=== PATIENT | male | born 1935 | race Caucasian/White ===

== ENCOUNTER 2017-09-26 07:56 | Observation (INO) | payer MEDICARE ==
[~2017-09-26] VITALS: Ht 177.8 cm; Wt 80.9 kg
[~2017-09-26 07:56] MED LIST: ATOR10TA PO; GABA100C PO; LACT1TAB13 PO; LEVO125T69 PO; LOSA25TA21 PO; OMEG500C3 PO; UBID1CAP54 PO; [UNRECOGNIZED DRUG - CODE] PO
[2017-09-26] MEDS ORDERED: normal saline 1000ML IV soln IVB ONE (08:15)
[2017-09-26 08:34] LABS: BASOPHILS % (AUTO) 0.2 % (0-1); EOSINOPHILS # (AUTO) 0.1 X10'3 (0-0.9); EOSINOPHILS % (AUTO) 1.2 % (0-6); HEMATOCRIT 30.1 % (42.0-52.0); HEMOGLOBIN 10.4 g/dl (14.0-17.9); LYMPHOCYTES # (AUTO) 1.5 X10'3 (1.1-4.8); LYMPHOCYTES % (AUTO) 12.6 % (21-51); MEAN CORPUSCULAR HEMOGLOBIN 29.1 PG (27.0-31.0); MEAN CORPUSCULAR HGB CONC 34.5 % (33.0-36.5); MEAN CORPUSCULAR VOLUME 84.5 FL (78-98); MONOCYTES # (AUTO) 0.5 X10'3 (0-0.9); MONOCYTES % (AUTO) 4.5 % (2-12); NEUTROPHILS # (AUTO) 9.4 X10'3 (1.8-7.7); NEUTROPHILS % (AUTO) 81.5 % (42-75); PLATELET COUNT 201 X10'3 (140-440); RED BLOOD COUNT 3.56 X10'6 (4.70-6.10); RED CELL DISTRIBUTION WIDTH 15.3 % (11.5-14.5); WHITE BLOOD COUNT 11.5 X10'3 (4.5-11.0)
[2017-09-26 08:42] LABS: PROTHROMBIN TIME 10.4 SECONDS (9.0-12.0)
[2017-09-26 09:01] LABS: ALANINE AMINOTRANSFERASE 18 U/L (12-78); ALBUMIN 2.9 G/DL (3.4-5.0); ALBUMIN/GLOBULIN RATIO 0.9 (1.1-1.5); ALKALINE PHOSPHATASE 64 IU/L (46-116); ANION GAP 10 (8-16); ASPARTATE AMINO TRANSFERASE 15 U/L (10-37); BILIRUBIN,TOTAL 0.3 MG/DL (0.1-1.0); BLOOD UREA NITROGEN 45 MG/DL (7-18); BUN/CREATININE RATIO 39.5 (5.4-32.0); CALCIUM 8.5 MG/DL (8.5-10.1); CHLORIDE 109 MMOL/L (99-107); CREATININE 1.14 MG/DL (0.60-1.10); GLUCOSE 140 MG/DL (70-104); LIPASE 66 U/L (73-393); POTASSIUM 5.2 MMOL/L (3.5-5.1); SODIUM 144 MMOL/L (135-145); TOTAL CARBON DIOXIDE 24.9 MMOL/L (24-32); eGFR 62 ML/MIN
[2017-09-26] MEDS ORDERED: LOSA25TA96 PO (10:02)
[2017-09-26] MEDS ORDERED: METO-539 PO (10:04)
[2017-09-26] MEDS ORDERED: sodium polystyrene sulfonate 15gm/60ml oral suspension PO ONE (10:15)
[2017-09-26] MEDS ORDERED: albuterol 2.5 MG/3 ML nebule NEB ONE (10:15)
[2017-09-26] MEDS ORDERED: normal saline 1000ml 1,000 ML IV ONE (12:50)
[2017-09-26] MEDS ORDERED: mag hydrox/Alum hydrox/simeth 30ml oral suspension PO PRN (13:15)
[2017-09-26] MEDS ORDERED: acetaminophen 325mg tablet PO PRN (13:15)
[2017-09-26] MEDS ORDERED: ondansetron/PF 4mg/2ml inj IV PRN (13:15)
[2017-09-26] MEDS ORDERED: magnesium hydroxide 30ml (MOM) UD suspension PO PRN (13:15)
[2017-09-26] MEDS: normal saline 1000ml 1,000 ML IV SCH ×2 (14:12→23:11)
[2017-09-26] MEDS ORDERED: pantoprazole 40 MG vial IV ONE (14:35)
[2017-09-26] MEDS ORDERED: PEG 3350/Na sulf,bicarb,Cl/KCl oral sol 4 liter bottle PO ONE (14:50)
[2017-09-26 15:00] LABS: CLARITY,URINE CLEAR (Clear); COLOR,URINE YELLOW (Yellow); GLUCOSE, URINE NEGATIVE (Neg); KETONES,URINE NEGATIVE (Neg); LEUKOCYTE ESTERASE ,URINE NEGATIVE (Neg); NITRITES, URINE NEGATIVE (Neg); OCCULT BLOOD,URINE NEGATIVE (Neg); PH,URINE 5.5 (4.8-8.0); PROTEIN,URINE NEGATIVE (Neg); UROBILINOGEN,URINE 0.2 E.U/dL (0.2-1.0)
[2017-09-26 15:06] LABS: UA COLLECTION TYPE CLN CATCH MIDSTREAM
[2017-09-26 15:26] LABS: HEMATOCRIT 27.3 % (42.0-52.0); HEMOGLOBIN 9.4 g/dl (14.0-17.9); MEAN CORPUSCULAR HEMOGLOBIN 29.5 PG (27.0-31.0); MEAN CORPUSCULAR HGB CONC 34.6 % (33.0-36.5); MEAN CORPUSCULAR VOLUME 85.5 FL (78-98); PLATELET COUNT 176 X10'3 (140-440); RED BLOOD COUNT 3.19 X10'6 (4.70-6.10); RED CELL DISTRIBUTION WIDTH 15.1 % (11.5-14.5); WHITE BLOOD COUNT 11.6 X10'3 (4.5-11.0)
[2017-09-26] MEDS ORDERED: heparin, porcine 5000 units/ml vial SQ SCH (20:00)
[2017-09-26] MEDS: pantoprazole 40MG/NS 100ML BAG 100 ML IV SCH ×2 (20:04→21:00)
[2017-09-26] MEDS ORDERED: CHONDROITIN PO SCH (21:00)
[2017-09-26] MEDS ORDERED: GLUCOSAMINE PO SCH (21:00)
[2017-09-26] MEDS ORDERED: CHOLECALCIFEROL PO SCH (21:00)
[2017-09-26 21:15] VITALS: BP 94/68
[2017-09-26] MEDS: gabapentin 100mg capsule PO SCH (21:16)
[2017-09-26] MEDS: lactobacillus rhamnosus 10,000 MMU CELLS/CAPSULE PO SCH (21:16)
[2017-09-26 21:27] LABS: HEMATOCRIT 27.5 % (42.0-52.0); HEMOGLOBIN 9.5 g/dl (14.0-17.9); MEAN CORPUSCULAR HEMOGLOBIN 29.2 PG (27.0-31.0); MEAN CORPUSCULAR HGB CONC 34.5 % (33.0-36.5); MEAN CORPUSCULAR VOLUME 84.8 FL (78-98); MEAN PLATELET VOLUME 8.6 FL (7.4-10.4); PLATELET COUNT 209 X10'3 (140-440); RED BLOOD COUNT 3.24 X10'6 (4.70-6.10); RED CELL DISTRIBUTION WIDTH 15.4 % (11.5-14.5)
[2017-09-27] VITALS (22 sets, daily range): BP systolic 99–155; BP diastolic 28–77
[2017-09-27] MEDS: pantoprazole 40MG/NS 100ML BAG 100 ML IV SCH ×6 (00:15→23:45)
[2017-09-27] MEDS ORDERED: HYDROcodone/acetaminophen 5mg/325mg tablet PO PRN (00:30)
[2017-09-27 03:38] LABS: BASOPHILS % (AUTO) 0.3 % (0-1); EOSINOPHILS % (AUTO) 0.1 % (0-6); HEMOGLOBIN 7.9 g/dl (14.0-17.9); LYMPHOCYTES # (AUTO) 2.1 X10'3 (1.1-4.8); MEAN CORPUSCULAR HEMOGLOBIN 29.3 PG (27.0-31.0); MEAN CORPUSCULAR HGB CONC 34.5 % (33.0-36.5); MEAN PLATELET VOLUME 8.8 FL (7.4-10.4); MONOCYTES # (AUTO) 0.8 X10'3 (0-0.9); MONOCYTES % (AUTO) 7.6 % (2-12); NEUTROPHILS # (AUTO) 7.2 X10'3 (1.8-7.7); PLATELET COUNT 167 X10'3 (140-440); RED BLOOD COUNT 2.71 X10'6 (4.70-6.10); RED CELL DISTRIBUTION WIDTH 15.1 % (11.5-14.5); WHITE BLOOD COUNT 10.2 X10'3 (4.5-11.0)
[2017-09-27 03:48] LABS: ALBUMIN 2.7 G/DL (3.4-5.0); ANION GAP 8 (8-16); BLOOD UREA NITROGEN 31 MG/DL (7-18); BUN/CREATININE RATIO 28.7 (5.4-32.0); CALCIUM 7.4 MG/DL (8.5-10.1); CHLORIDE 111 MMOL/L (99-107); CREATININE 1.08 MG/DL (0.60-1.10); GLUCOSE 106 MG/DL (70-104); POTASSIUM 3.8 MMOL/L (3.5-5.1); SODIUM 146 MMOL/L (135-145); TOTAL CARBON DIOXIDE 27.3 MMOL/L (24-32); eGFR 66 ML/MIN
[2017-09-27] MEDS: normal saline 1000ml 1,000 ML IV SCH ×2 (05:02→17:15)
[2017-09-27 05:55] LABS: HEMATOCRIT 22.3 % (42.0-52.0); HEMOGLOBIN 7.7 g/dl (14.0-17.9); MEAN CORPUSCULAR HGB CONC 34.4 % (33.0-36.5); MEAN CORPUSCULAR VOLUME 84.4 FL (78-98); MEAN PLATELET VOLUME 9.1 FL (7.4-10.4); PLATELET COUNT 157 X10'3 (140-440); RED BLOOD COUNT 2.64 X10'6 (4.70-6.10); RED CELL DISTRIBUTION WIDTH 15.3 % (11.5-14.5)
[2017-09-27] MEDS ORDERED: LACTOBACILLUS COMBO NO 6 PO SCH (07:30)
[2017-09-27] MEDS ORDERED: non-formulary drug (Ubidecarenone/Vit E Acetate (Co Q-10 100 Mg Softgel) 1 EACH) PO SCH (08:00)
[2017-09-27 09:20] LABS: HEMATOCRIT 24.2 % (42.0-52.0); HEMOGLOBIN 8.2 g/dl (14.0-17.9); MEAN CORPUSCULAR HEMOGLOBIN 29.1 PG (27.0-31.0); MEAN CORPUSCULAR HGB CONC 33.9 % (33.0-36.5); MEAN CORPUSCULAR VOLUME 85.8 FL (78-98); MEAN PLATELET VOLUME 9.1 FL (7.4-10.4); PLATELET COUNT 180 X10'3 (140-440); RED BLOOD COUNT 2.82 X10'6 (4.70-6.10); RED CELL DISTRIBUTION WIDTH 15.5 % (11.5-14.5); WHITE BLOOD COUNT 8.3 X10'3 (4.5-11.0)
[2017-09-27] MEDS: atorvastatin 10mg tablet PO SCH (09:36)
[2017-09-27] MEDS: lactobacillus rhamnosus 10,000 MMU CELLS/CAPSULE PO SCH ×2 (09:37→20:13)
[2017-09-27] MEDS: vitamin D (cholecalciferol) 1,000 unit tablet PO SCH (09:37)
[2017-09-27] MEDS: levoTHYROXINE 125mcg tablet PO SCH (09:37)
[2017-09-27] MEDS: gabapentin 100mg capsule PO SCH ×3 (09:37→20:13)
[2017-09-27] MEDS ORDERED: normal saline 1000ml 1,000 ML IV SCH ×2 (09:44→10:45)
[2017-09-27] MEDS ORDERED: simethicone 40mg/0.6ml oral drops 30ml MC ONE ×2 (09:45→10:45)
[2017-09-27] MEDS ORDERED: fentaNYL/PF 50MCG/1 ML 2ML syringe IV PRN ×2 (09:45→10:45)
[2017-09-27] MEDS ORDERED: MIDAZolam 5mg/5ml vial IV PRN ×2 (09:45→10:45)
[2017-09-27] MEDS ORDERED: MIDAZolam 5mg/ml 2ml vial ONE (10:28)
[2017-09-27] MEDS ORDERED: fentaNYL/PF 50MCG/1 ML 2ML syringe ONE (10:28)
[2017-09-27] MEDS ORDERED: LIDOcaine Viscous 15ml cup PO ONE (10:45)
[2017-09-27] MEDS ORDERED: LIDOcaine Viscous 15ml cup ONE (10:48)
[2017-09-27 17:18] LABS: HEMATOCRIT 23.5 % (42.0-52.0); HEMOGLOBIN 8.2 g/dl (14.0-17.9); MEAN CORPUSCULAR HGB CONC 34.9 % (33.0-36.5); MEAN CORPUSCULAR VOLUME 83.1 FL (78-98); MEAN PLATELET VOLUME 8.9 FL (7.4-10.4); PLATELET COUNT 161 X10'3 (140-440); RED BLOOD COUNT 2.83 X10'6 (4.70-6.10); RED CELL DISTRIBUTION WIDTH 15.9 % (11.5-14.5); WHITE BLOOD COUNT 7.6 X10'3 (4.5-11.0)
[2017-09-27 22:33] LABS: HEMATOCRIT 26.7 % (42.0-52.0); HEMOGLOBIN 9.2 g/dl (14.0-17.9); MEAN CORPUSCULAR HEMOGLOBIN 28.8 PG (27.0-31.0); MEAN CORPUSCULAR HGB CONC 34.5 % (33.0-36.5); MEAN CORPUSCULAR VOLUME 83.6 FL (78-98); MEAN PLATELET VOLUME 9.1 FL (7.4-10.4); PLATELET COUNT 148 X10'3 (140-440); RED BLOOD COUNT 3.19 X10'6 (4.70-6.10); RED CELL DISTRIBUTION WIDTH 16.8 % (11.5-14.5); WHITE BLOOD COUNT 7.4 X10'3 (4.5-11.0)
[2017-09-28] VITALS: BP 117/69
[2017-09-28 03:37] LABS: BASOPHILS % (AUTO) 0.3 % (0-1); EOSINOPHILS # (AUTO) 0.2 X10'3 (0-0.9); EOSINOPHILS % (AUTO) 3.8 % (0-6); HEMATOCRIT 26.3 % (42.0-52.0); HEMOGLOBIN 9.1 g/dl (14.0-17.9); LYMPHOCYTES # (AUTO) 1.8 X10'3 (1.1-4.8); LYMPHOCYTES % (AUTO) 28.9 % (21-51); MEAN CORPUSCULAR HEMOGLOBIN 28.9 PG (27.0-31.0); MEAN CORPUSCULAR HGB CONC 34.5 % (33.0-36.5); MEAN CORPUSCULAR VOLUME 83.8 FL (78-98); MEAN PLATELET VOLUME 8.6 FL (7.4-10.4); MONOCYTES # (AUTO) 0.6 X10'3 (0-0.9); MONOCYTES % (AUTO) 9.5 % (2-12); NEUTROPHILS # (AUTO) 3.5 X10'3 (1.8-7.7); NEUTROPHILS % (AUTO) 57.5 % (42-75); PLATELET COUNT 138 X10'3 (140-440); RED BLOOD COUNT 3.14 X10'6 (4.70-6.10); RED CELL DISTRIBUTION WIDTH 16.2 % (11.5-14.5); WHITE BLOOD COUNT 6.1 X10'3 (4.5-11.0)
[2017-09-28] MEDS: normal saline 1000ml 1,000 ML IV SCH (03:44)
[2017-09-28 03:46] LABS: ALBUMIN 2.4 G/DL (3.4-5.0); ANION GAP 8 (8-16); BLOOD UREA NITROGEN 11 MG/DL (7-18); BUN/CREATININE RATIO 13.8 (5.4-32.0); CALCIUM 6.9 MG/DL (8.5-10.1); CHLORIDE 114 MMOL/L (99-107); GLUCOSE 82 MG/DL (70-104); POTASSIUM 3.6 MMOL/L (3.5-5.1); SODIUM 147 MMOL/L (135-145); TOTAL CARBON DIOXIDE 24.6 MMOL/L (24-32); eGFR > 90 ML/MIN
[2017-09-28] MEDS: pantoprazole 40MG/NS 100ML BAG 100 ML IV SCH ×2 (05:06→10:19)
[2017-09-28 08:00] VITALS: BP 117/52
[2017-09-28] MEDS: lactobacillus rhamnosus 10,000 MMU CELLS/CAPSULE PO SCH (08:16)
[2017-09-28] MEDS: levoTHYROXINE 125mcg tablet PO SCH (08:17)
[2017-09-28] MEDS: atorvastatin 10mg tablet PO SCH (08:17)
[2017-09-28] MEDS: gabapentin 100mg capsule PO SCH ×2 (08:17→13:00)
[2017-09-28] MEDS: vitamin D (cholecalciferol) 1,000 unit tablet PO SCH (08:18)
[2017-09-28 09:26] LABS: HEMATOCRIT 28.7 % (42.0-52.0); HEMOGLOBIN 9.8 g/dl (14.0-17.9); MEAN CORPUSCULAR HEMOGLOBIN 28.8 PG (27.0-31.0); MEAN CORPUSCULAR HGB CONC 34.3 % (33.0-36.5); MEAN CORPUSCULAR VOLUME 84.1 FL (78-98); MEAN PLATELET VOLUME 8.5 FL (7.4-10.4); PLATELET COUNT 171 X10'3 (140-440); RED BLOOD COUNT 3.42 X10'6 (4.70-6.10); RED CELL DISTRIBUTION WIDTH 16.3 % (11.5-14.5); WHITE BLOOD COUNT 7.3 X10'3 (4.5-11.0)
[2017-09-28 11:10] VITALS: BP_SYST 113; BP_SYST 118; BP_SYST 126; BP_DIAS 46; BP_DIAS 56; BP_DIAS 57
[2017-09-28 11:56] VITALS: BP 137/63
== END 2017-09-28 15:19 | disposition home health service (06) ==
LOC: ER 07:56 → ED HOLD 13:11 → EDBEDREQ 20:28 → EDBEDREQTM 20:28 → SUR 3N 21:00
PROVIDERS: ADMIT Family Medicine; ATTEND Family Medicine
DX: K92.1 Melena (principal); K57.91 Diverticulosis of intestine, part unspecified, without perforation or abscess with bleeding; D64.9 Anemia, unspecified; K59.00 Constipation, unspecified; I95.9 Hypotension, unspecified; E86.0 Dehydration; N28.9 Disorder of kidney and ureter, unspecified; I10 Essential (primary) hypertension; E78.5 Hyperlipidemia, unspecified; E78.00 Pure hypercholesterolemia, unspecified; E03.9 Hypothyroidism, unspecified; D50.9 Iron deficiency anemia, unspecified; Z85.038 Personal history of other malignant neoplasm of large intestine; Z87.11 Personal history of peptic ulcer disease; Z95.0 Presence of cardiac pacemaker
CPT/HCPCS: 36415; 36430; 43235; 45378; 71046; 73552; 80048; 80053; 81003; 83690; 83735; 83880; 84484; 85025; 85027; 85610; 86885; 86900; 86901; 86920; 87070; 93005; 94760; 96365; 96366; 96375; 99285; C9113; G0378; J2250; J3010; J7030; P9016; A4620; G0500

== ENCOUNTER 2019-05-17 07:07 | Day surgery (SDC) | payer MEDICARE ==
[2019-05-11 12:30] LABS: BASOPHILS # (AUTO) 0.1 X10'3 (0-0.2); BASOPHILS % (AUTO) 0.9 % (0-1); EOSINOPHILS # (AUTO) 0.2 X10'3 (0-0.9); EOSINOPHILS % (AUTO) 2.2 % (0-6); LYMPHOCYTES # (AUTO) 2.2 X10'3 (1.1-4.8); LYMPHOCYTES % (AUTO) 23.8 % (21-51); MEAN CORPUSCULAR HEMOGLOBIN 28.3 PG (27.0-31.0); MEAN CORPUSCULAR HGB CONC 33.2 g/dL (33.0-36.5); MEAN CORPUSCULAR VOLUME 85.4 FL (78-98); MEAN PLATELET VOLUME 9.4 FL (7.4-10.4); MONOCYTES # (AUTO) 0.9 X10'3 (0-0.9); MONOCYTES % (AUTO) 9.6 % (2-12); NEUTROPHILS # (AUTO) 5.8 X10'3 (1.8-7.7); NEUTROPHILS % (AUTO) 63.5 % (42-75); PRE OP HEMOGLOBIN 13.9 g/dL (14.0-17.9); PRE OP PLATELET COUNT 212 X10'3 (140-440); RED BLOOD COUNT 4.92 X10'6 (4.70-6.10); RED CELL DISTRIBUTION WIDTH 15.7 % (11.5-14.5)
[2019-05-11 13:06] LABS: ALBUMIN 3.6 G/DL (3.4-5.0); ALBUMIN/GLOBULIN RATIO 0.9 (1.1-1.5); ALKALINE PHOSPHATASE 81 IU/L (46-116); BLOOD UREA NITROGEN 17 MG/DL (7-18); BUN/CREATININE RATIO 16.8 (5.4-32.0); CALCIUM 8.5 MG/DL (8.5-10.1); CHLORIDE 108 MMOL/L (99-107); CREATININE 1.01 MG/DL (0.60-1.10); PRE OP ALT 40 U/L (30-65); PRE OP ANION GAP 7 (8-16); PRE OP AST 22 U/L (10-37); PRE OP BILIRUB, TOTAL 0.3 MG/DL (0.0-1.0); PRE OP GLUCOSE 78 MG/DL (70-104); PRE OP POTASSIUM 4.8 MMOL/L (3.4-5.1); PRE OP SODIUM 143 MMOL/L (135-145); TOTAL CARBON DIOXIDE 27.8 MMOL/L (24-32); TOTAL PROTEIN 7.4 G/DL (6.4-8.2); eGFR 71 ML/MIN
[2019-05-17] VITALS (7 sets, daily range): BP systolic 134–145; BP diastolic 60–99
[~2019-05-17] VITALS: Ht 177.8 cm; Wt 82.6 kg
[~2019-05-17 07:07] MED LIST changes: +ASPI-1071 PO; +BUPIVAcaine/PF 2.5mg/ml (0.25%) 10ml vial ONE; -LACT1TAB13 PO; -LOSA25TA21 PO; +LOSA25TA96 PO; -UBID1CAP54 PO; +cefazolin/dext.iso 2gm/50ml 50 ML IV ONE; +famotidine 20mg tablet PO ONE; +ringers solution, lacted 1,000 ML IV SCH
[2019-05-17] MEDS ORDERED: LIDOcaine 0.5% (5mg/ml) 50ml vial ONE (07:18)
[2019-05-17] MEDS ORDERED: hydrALAZINE 20mg/ml inj. IV PRN (08:00)
[2019-05-17] MEDS ORDERED: ondansetron/PF 4mg/2ml inj IV PRN (08:00)
[2019-05-17] MEDS ORDERED: labetalol 20mg/4ml (5mg/ml) syringe IV PRN (08:00)
[2019-05-17] MEDS ORDERED: ringers solution, lacted 1,000 ML IV SCH (08:00)
[2019-05-17] MEDS ORDERED: fentaNYL/PF 50MCG/1 ML 2ML syringe IV PRN ×2 (08:00)
[2019-05-17] MEDS ORDERED: morphine 4 MG/ML inj SYRINge IV PRN ×2 (08:00)
[2019-05-17] MEDS ORDERED: propofol 10mg/ml 20ml vial IV ONE (09:03)
--- NOTE | 2019-05-17 09:38 | NUR ---
Received from OR via , accompanied by Anesthesiologist DR JACQUES and report given by Anesthesiolgist. AWAKENS TO VOICE, VITALS STABLE.
--- NOTE | 2019-05-17 10:28 | NUR ---
AWAKE AND ORIENTED. VITALS STABLE. DRESSING DI. SCOOBY PAIN HOME WITH A FRIEND AT THIS TIME.
== END 2019-05-17 10:28 | disposition home or self-care (01) ==
LOC: PAS 07:07
PROVIDERS: ATTEND Orthopaedic Surgery Hand Surgery
DX: G56.03 Carpal tunnel syndrome, bilateral upper limbs (principal); M18.0 Bilateral primary osteoarthritis of first carpometacarpal joints; I10 Essential (primary) hypertension; M19.90 Unspecified osteoarthritis, unspecified site; Z87.891 Personal history of nicotine dependence; Z95.0 Presence of cardiac pacemaker; Z88.1 Allergy status to other antibiotic agents; Z85.038 Personal history of other malignant neoplasm of large intestine; Z86.19 Personal history of other infectious and parasitic diseases; Z79.82 Long term (current) use of aspirin; Z79.899 Other long term (current) drug therapy; Z98.890 Other specified postprocedural states
CPT/HCPCS: 36415; 64721; 80053; 82948; 84443; 85025; 93005; J2001; J3490; A4215; A6222; A6449; J2704; J7120

== ENCOUNTER 2020-06-01 09:32 | Emergency (ER) | payer MEDICARE ==
[~2020-06-01] VITALS: Ht 177.8 cm; Wt 79.5 kg
[~2020-06-01 09:32] MED LIST changes: -BUPIVAcaine/PF 2.5mg/ml (0.25%) 10ml vial ONE; -cefazolin/dext.iso 2gm/50ml 50 ML IV ONE; -famotidine 20mg tablet PO ONE; -ringers solution, lacted 1,000 ML IV SCH
[2020-06-01 10:00] LABS: WHITE BLOOD COUNT 10.7 X10'3 (4.5-11.0)
[2020-06-01 10:02] LABS: BASOPHILS # (AUTO) 0.1 X10'3 (0-0.2); BASOPHILS % (AUTO) 0.9 % (0-1); EOSINOPHILS # (AUTO) 0.3 X10'3 (0-0.9); EOSINOPHILS % (AUTO) 2.4 % (0-6); HEMATOCRIT 46.5 % (42.0-52.0); HEMOGLOBIN 15.7 g/dl (14.0-17.9); LYMPHOCYTES % (AUTO) 27.7 % (21-51); MEAN CORPUSCULAR HGB CONC 33.8 g/dL (33.0-36.5); MEAN CORPUSCULAR VOLUME 85.5 FL (78-98); MEAN PLATELET VOLUME 8.3 FL (7.4-10.4); MONOCYTES # (AUTO) 1.1 X10'3 (0-0.9); MONOCYTES % (AUTO) 9.9 % (2-12); NEUTROPHILS # (AUTO) 6.3 X10'3 (1.8-7.7); NEUTROPHILS % (AUTO) 59.1 % (42-75); PLATELET COUNT 243 X10'3 (140-440); RED BLOOD COUNT 5.44 X10'6 (4.70-6.10); RED CELL DISTRIBUTION WIDTH 15.4 % (11.5-14.5)
[2020-06-01 10:14] LABS: ALANINE AMINOTRANSFERASE 24 U/L (12-78); ALBUMIN 3.8 G/DL (3.4-5.0); ALKALINE PHOSPHATASE 97 IU/L (46-116); ANION GAP 6 (8-16); ASPARTATE AMINO TRANSFERASE 20 U/L (10-37); BILIRUBIN,TOTAL 0.4 MG/DL (0.1-1.0); BLOOD UREA NITROGEN 14 MG/DL (7-18); BUN/CREATININE RATIO 11.5 (5.4-32.0); CALCIUM 8.9 MG/DL (8.5-10.1); CHLORIDE 106 MMOL/L (99-107); CREATININE 1.22 MG/DL (0.60-1.10); GLUCOSE 72 MG/DL (70-104); POTASSIUM 4.7 MMOL/L (3.5-5.1); SODIUM 140 MMOL/L (135-145); TOTAL CARBON DIOXIDE 28.2 MMOL/L (24-32); TOTAL PROTEIN 7.8 G/DL (6.4-8.2); eGFR 57 ML/MIN
[2020-06-01] MEDS ORDERED: magnesium 2GM in 50ml NS 50 ML IV ONE (10:35)
[2020-06-01] MEDS ORDERED: normal saline 1000ML IV soln IVB ONE (10:35)
[2020-06-01] MEDS ORDERED: amiodarone 150mg/dext, iso-os 100 ML IV ONE (12:20)
[2020-06-01] MEDS ORDERED: amiodarone 200mg tablet PO ONE (13:20)
[2020-06-01] MEDS ORDERED: AMIO200T61 PO (13:45)
[2020-06-01 14:03] VITALS: BP 117/56
== END 2020-06-01 14:06 | disposition home or self-care (01) ==
LOC: ER 09:33
DX: I47.2 Ventricular tachycardia (principal); E78.00 Pure hypercholesterolemia, unspecified; Z87.11 Personal history of peptic ulcer disease; Z85.038 Personal history of other malignant neoplasm of large intestine; Z98.890 Other specified postprocedural states; Z95.0 Presence of cardiac pacemaker; Z79.82 Long term (current) use of aspirin; Z79.899 Other long term (current) drug therapy; Z88.1 Allergy status to other antibiotic agents; Z88.6 Allergy status to analgesic agent
CPT/HCPCS: 36415; 71045; 80053; 83880; 84443; 84484; 85025; 93005; 96365; 96366; 99285; J3475; J7030

== ENCOUNTER 2020-06-19 09:18 | Emergency (ER) | payer MEDICARE ==
[~2020-06-19] VITALS: Ht 177.8 cm; Wt 79.5 kg
[~2020-06-19 09:18] MED LIST changes: +AMIO200T61 PO
[2020-06-19 10:16] LABS: BASOPHILS # (AUTO) 0.1 X10'3 (0-0.2); BASOPHILS % (AUTO) 0.6 % (0-1); EOSINOPHILS # (AUTO) 0.1 X10'3 (0-0.9); EOSINOPHILS % (AUTO) 0.9 % (0-6); HEMOGLOBIN 13.7 g/dl (14.0-17.9); LYMPHOCYTES # (AUTO) 1.3 X10'3 (1.1-4.8); LYMPHOCYTES % (AUTO) 10.3 % (21-51); MEAN CORPUSCULAR HEMOGLOBIN 28.5 PG (27.0-31.0); MEAN CORPUSCULAR HGB CONC 33.4 g/dL (33.0-36.5); MEAN CORPUSCULAR VOLUME 85.4 FL (78-98); MEAN PLATELET VOLUME 8.7 FL (7.4-10.4); MONOCYTES # (AUTO) 1.3 X10'3 (0-0.9); MONOCYTES % (AUTO) 10.4 % (2-12); NEUTROPHILS # (AUTO) 9.9 X10'3 (1.8-7.7); NEUTROPHILS % (AUTO) 77.8 % (42-75); PLATELET COUNT 238 X10'3 (140-440); RED BLOOD COUNT 4.81 X10'6 (4.70-6.10); RED CELL DISTRIBUTION WIDTH 15.5 % (11.5-14.5); WHITE BLOOD COUNT 12.7 X10'3 (4.5-11.0)
[2020-06-19 10:30] LABS: ALANINE AMINOTRANSFERASE 29 U/L (12-78); ALBUMIN 3.5 G/DL (3.4-5.0); ALBUMIN/GLOBULIN RATIO 0.9 (1.1-1.5); ALKALINE PHOSPHATASE 84 IU/L (46-116); ANION GAP 8 (8-16); ASPARTATE AMINO TRANSFERASE 21 U/L (10-37); BILIRUBIN,TOTAL 0.5 MG/DL (0.1-1.0); BLOOD UREA NITROGEN 16 MG/DL (7-18); BUN/CREATININE RATIO 12.6 (5.4-32.0); CALCIUM 9.3 MG/DL (8.5-10.1); CHLORIDE 106 MMOL/L (99-107); CREATININE 1.27 MG/DL (0.60-1.10); GLUCOSE 60 MG/DL (70-104); POTASSIUM 5.1 MMOL/L (3.5-5.1); SODIUM 141 MMOL/L (135-145); TOTAL CARBON DIOXIDE 27.4 MMOL/L (24-32); TOTAL PROTEIN 7.3 G/DL (6.4-8.2); eGFR 54 ML/MIN
--- NOTE | 2020-06-19 10:34 | NUR ---
TC TO DR. SPENCER'S OFFICE TO FIND OUT WHAT TYPE OF PACEMAKER PATIENT HAS. THERE ARE NO RECORDS AT THE OFFICE, PER STAFF.
[2020-06-19 11:41] VITALS: BP 139/61
--- NOTE | 2020-06-19 11:46 | NUR ---
the [employer] system says it is failing to send the information to get a report. have tried multiple times. BERNARD aware. Talon is calling them to let them know and have a person come out here to interogate the pacemaker. Addendum: 06/19/20 at 1226 by RWILCOX it is [employer] acording to the pt's card. not [employer]
== END 2020-06-19 12:40 | disposition home or self-care (01) ==
LOC: ER 09:19
DX: R53.1 Weakness (principal); E78.00 Pure hypercholesterolemia, unspecified; Z88.1 Allergy status to other antibiotic agents; Z88.2 Allergy status to sulfonamides; Z79.899 Other long term (current) drug therapy
CPT/HCPCS: 36415; 71045; 80053; 83880; 84484; 85025; 93005; 99285

== ENCOUNTER 2022-03-20 11:26 | Inpatient (IN) | payer MEDICARE ==
[~2022-03-20] VITALS: Ht 177.8 cm; Wt 77.3 kg
[~2022-03-20 11:26] MED LIST changes: -AMIO200T61 PO
[2022-03-20 12:03] LABS: BASOPHILS # (AUTO) 0.1 X10'3 (0-0.2); BASOPHILS % (AUTO) 0.5 % (0-1); EOSINOPHILS % (AUTO) 0.2 % (0-6); HEMATOCRIT 39.4 % (42.0-52.0); LYMPHOCYTES # (AUTO) 1.2 X10'3 (1.1-4.8); LYMPHOCYTES % (AUTO) 11.9 % (21-51); MEAN CORPUSCULAR HEMOGLOBIN 27.4 PG (27.0-31.0); MEAN CORPUSCULAR VOLUME 82.8 FL (78-98); MONOCYTES # (AUTO) 1.1 X10'3 (0-0.9); MONOCYTES % (AUTO) 10.8 % (2-12); NEUTROPHILS # (AUTO) 7.8 X10'3 (1.8-7.7); NEUTROPHILS % (AUTO) 76.6 % (42-75); PLATELET COUNT 182 X10'3 (140-440); RED BLOOD COUNT 4.75 X10'6 (4.70-6.10); RED CELL DISTRIBUTION WIDTH 16.3 % (11.5-14.5); WHITE BLOOD COUNT 10.1 X10'3 (4.5-11.0)
[2022-03-20] MEDS ORDERED: LISI40TA13 PO (12:14)
[2022-03-20] MEDS ORDERED: METO-384 PO (12:14)
[2022-03-20 12:25] LABS: ALANINE AMINOTRANSFERASE 22 U/L (12-78); ALBUMIN 3.5 G/DL (3.4-5.0); ALBUMIN/GLOBULIN RATIO 0.9 (1.1-1.5); ALKALINE PHOSPHATASE 66 IU/L (46-116); ANION GAP 12 (8-16); ASPARTATE AMINO TRANSFERASE 24 U/L (10-37); BILIRUBIN,TOTAL 0.5 MG/DL (0.1-1.0); BLOOD UREA NITROGEN 17 MG/DL (7-18); BUN/CREATININE RATIO 12.2 (5.4-32.0); CHLORIDE 103 MMOL/L (99-107); CREATININE 1.39 MG/DL (0.60-1.10); GLUCOSE 123 MG/DL (70-104); POTASSIUM 3.8 MMOL/L (3.5-5.1); SODIUM 137 MMOL/L (135-145); TOTAL CARBON DIOXIDE 22.4 MMOL/L (24-32); TOTAL PROTEIN 7.2 G/DL (6.4-8.2); eGFR 49 ML/MIN
[2022-03-20] MEDS ORDERED: dexamethasone sod phosphate 10mg/ml inj IV STA (12:44)
[2022-03-20] MEDS ORDERED: BEBTELOVIMAB 175 MG/2 ML VIAL IV ONE (12:45)
[2022-03-20] MEDS ORDERED: albuterol 2.5 MG/3 ML nebule NEB ONE (14:45)
[2022-03-20] MEDS ORDERED: acetaminophen 325mg tablet PO PRN ×2 (15:25)
[2022-03-20] MEDS ORDERED: ondansetron/PF 4mg/2ml inj IV PRN (15:25)
[2022-03-20] MEDS ORDERED: magnesium Cl slow-release 64mg tablet PO PRN (15:25)
[2022-03-20] MEDS ORDERED: HYDROcodone/acetaminophen 5mg/325mg tablet PO PRN (15:25)
[2022-03-20] MEDS ORDERED: POTASSIUM BICARB 20meq eff tab 20 MEQ TABLET.EFF PO PRN ×2 (15:25)
[2022-03-20] MEDS ORDERED: potassium CL 10mEq/100ml bag 100 ML IV PRN (15:25)
[2022-03-20] MEDS ORDERED: normal saline 1000ml 1,000 ML IV SCH (15:25)
[2022-03-20] MEDS ORDERED: guaiFENesin/DM/phenylephrine syrup 120ml bottle PO PRN (15:25)
[2022-03-20] MEDS ORDERED: magnesium 4gm in 100ml NS 100 ML IV PRN (15:25)
[2022-03-20] MEDS ORDERED: magnesium 2GM in 50ml NS 50 ML IV PRN (15:25)
[2022-03-20] MEDS ORDERED: morphine 2 MG/ML inj. syringe IV PRN (15:25)
[2022-03-20] MEDS ORDERED: dexamethasone 4mg/ml inj IV SCH (16:00)
--- NOTE | 2022-03-20 16:45 | NUR ---
Pt attempted to void in and urinal and splilled. Cleaned pt. Now, he has a temp of 102.1(o). Increasing moisture with coughing. Difficulty producing sputum.
[2022-03-20] MEDS ORDERED: ALBUTEROL INHALER 1 PUFF/90 MCG INHALation IH PRN (17:30)
[2022-03-20] MEDS ORDERED: CefTRIAXone 2gm/D5W 50ml BAG 50 ML IV SCH (17:30)
[2022-03-20] MEDS ORDERED: budesonide 0.5mg/2ml UD nebule IH SCH (20:00)
[2022-03-20] MEDS ORDERED: K and/or MAG REPLACEMENT MC SCH (20:00)
[2022-03-20] MEDS ORDERED: BUDESONIDE 180 MCG AER.POW.BA INH SCH (20:00)
[2022-03-20] MEDS: benzonatate 100mg capsule PO SCH (20:07)
[2022-03-20] MEDS: heparin, porcine 5000 units/ml vial SQ SCH (20:07)
[2022-03-20] MEDS: dexamethasone 4mg/ml inj IV SCH (20:07)
[2022-03-20] MEDS ORDERED: temazepam 15mg capsule PO PRN (21:00)
[2022-03-20] MEDS ORDERED: metoprolol succinate 25mg (24-HOUR) SR. Tablet PO SCH (21:02)
--- NOTE | 2022-03-20 21:28 | NUR ---
paged rt. for prn breathing tx.
--- NOTE | 2022-03-20 21:34 | NUR ---
respiratory advised for pt. too keep using yankeur to remove phlegm.
--- NOTE | 2022-03-20 23:21 | NUR ---
pt. alert and oriented when I entered the room. Pt. was adjusting himself in bed. stated he had no needs at this time.
[2022-03-21 03:38] LABS: BASOPHILS % (AUTO) 0.1 % (0-1); EOSINOPHILS % (AUTO) 0 % (0-6); HEMATOCRIT 36.5 % (42.0-52.0); HEMOGLOBIN 12.1 g/dl (14.0-17.9); LYMPHOCYTES # (AUTO) 0.8 X10'3 (1.1-4.8); LYMPHOCYTES % (AUTO) 10.4 % (21-51); MEAN CORPUSCULAR HEMOGLOBIN 27.5 PG (27.0-31.0); MEAN CORPUSCULAR HGB CONC 33.3 g/dL (33.0-36.5); MEAN CORPUSCULAR VOLUME 82.6 FL (78-98); MEAN PLATELET VOLUME 8.1 FL (7.4-10.4); MONOCYTES # (AUTO) 0.6 X10'3 (0-0.9); NEUTROPHILS # (AUTO) 6.7 X10'3 (1.8-7.7); NEUTROPHILS % (AUTO) 82.5 % (42-75); PLATELET COUNT 151 X10'3 (140-440); RED BLOOD COUNT 4.41 X10'6 (4.70-6.10); RED CELL DISTRIBUTION WIDTH 15.9 % (11.5-14.5); WHITE BLOOD COUNT 8.1 X10'3 (4.5-11.0)
[2022-03-21 03:57] LABS: ALANINE AMINOTRANSFERASE 18 U/L (12-78); ALBUMIN 2.8 G/DL (3.4-5.0); ALBUMIN/GLOBULIN RATIO 0.9 (1.1-1.5); ALKALINE PHOSPHATASE 52 IU/L (46-116); ANION GAP 8 (8-16); ASPARTATE AMINO TRANSFERASE 21 U/L (10-37); BILIRUBIN,TOTAL 0.3 MG/DL (0.1-1.0); BLOOD UREA NITROGEN 19 MG/DL (7-18); BUN/CREATININE RATIO 17.9 (5.4-32.0); CALCIUM 7.6 MG/DL (8.5-10.1); CHLORIDE 109 MMOL/L (99-107); CREATININE 1.06 MG/DL (0.60-1.10); GLUCOSE 158 MG/DL (70-104); POTASSIUM 4.1 MMOL/L (3.5-5.1); SODIUM 143 MMOL/L (135-145); TOTAL CARBON DIOXIDE 26.3 MMOL/L (24-32); eGFR 67 ML/MIN
[2022-03-21] MEDS: dexamethasone 4mg/ml inj IV SCH (05:10)
--- NOTE | 2022-03-21 06:31 | NUR ---
Assumed patient care at this time
[2022-03-21 08:00] VITALS: BP 125/58
[2022-03-21] MEDS: heparin, porcine 5000 units/ml vial SQ SCH (08:00)
[2022-03-21] MEDS ORDERED: atorvastatin 10mg tablet PO SCH (08:00)
[2022-03-21] MEDS ORDERED: losartan 50mg tablet PO SCH (08:00)
[2022-03-21] MEDS ORDERED: levoTHYROXINE 125mcg tablet PO SCH (08:00)
--- NOTE | 2022-03-21 08:20 | NUR ---
Dr. Julio pagesanti. Patient states he wants to leave AMA.
[2022-03-21] MEDS: benzonatate 100mg capsule PO SCH (08:34)
--- NOTE | 2022-03-21 08:35 | NUR ---
Dr. Julio stated she will call back.
[2022-03-21] MEDS ORDERED: BENZ-69 PO (09:35)
[2022-03-21] MEDS ORDERED: LOSA50TA64 PO (09:35)
[2022-03-21] MEDS ORDERED: PRED10TA23 PO (09:35)
[2022-03-21] MEDS ORDERED: ALBU6.7H9 IH (09:35)
[2022-03-21] MEDS ORDERED: LEVO-65 PO (09:35)
[2022-03-21] MEDS ORDERED: GUAI-727 PO (09:35)
--- NOTE | 2022-03-21 10:15 | NUR ---
Patient given discharge instructions by dr. Julio. Patient taken to lobby by wheelchair.
--- NOTE | 2022-03-25 14:25 | NUR ---
Case Management DC follow up:Spoke with Patient via telephone. S/P : Patient Reports: Denies: Acute/continuous C/P, emergent SOB, resp distress, dyspnea; however, verbalizes having occasional moist cough.Denies: N/V, weakness, vertigo, syncope episodes, orthostatic hypotension, RICHTER,blurry vision, s/s of stroke/BE-FAST, dysuria, hematuria, retention, abdominal pain/distention, hematochezia, melena, unexplained bruising, bleeding, fever,chills . Verbalizes only two of his new prescriptions were available at the pharmacy; pharmacy had not received the complete order from hospital. I phoned [facility] pharmacists whom confirmed that they receive only two orders ;Levofloxacin, and prednisone. the discharge Physician is not available;therefore, contacted Patient's PCP Dr.K. Vee. Received telephone orders for the discharge medications, and called them into [facility].Telephoned Patient and apprised him his medications have been called in.Patient verbalizes he dose not want anymore medications ,and doesn't need new medications. Reminded Patient to call Dr. Vee's office and schedule follow up appointment for after his isolation is completed.Patient verbalizes while in the hospital the nurses did not give him water or food and/or empty his urinal ;just gave him medications.No further questions/concerns regarding recent hospital stay and/or DC status at this time.
== END 2022-03-21 10:00 | disposition home or self-care (01) | DRG 177 ==
LOC: ER 11:26 → ED HOLD 15:30
PROVIDERS: ADMIT Internal Medicine; ATTEND Internal Medicine
DX: U07.1 COVID-19 (principal); J12.82 Pneumonia due to coronavirus disease 2019; J96.01 Acute respiratory failure with hypoxia; J44.0 Chronic obstructive pulmonary disease with (acute) lower respiratory infection; J44.1 Chronic obstructive pulmonary disease with (acute) exacerbation; Z60.2 Problems related to living alone; E78.00 Pure hypercholesterolemia, unspecified; F03.90 Unspecified dementia, unspecified severity, without behavioral disturbance, psychotic disturbance, mood disturbance, and anxiety; E03.9 Hypothyroidism, unspecified; I25.10 Atherosclerotic heart disease of native coronary artery without angina pectoris; I50.9 Heart failure, unspecified; Z78.9 Other specified health status; Z85.038 Personal history of other malignant neoplasm of large intestine; Z87.11 Personal history of peptic ulcer disease; Z95.0 Presence of cardiac pacemaker; Z87.891 Personal history of nicotine dependence; Z86.12 Personal history of poliomyelitis; Z88.8 Allergy status to other drugs, medicaments and biological substances; Z90.49 Acquired absence of other specified parts of digestive tract
CPT/HCPCS: 36415; 71045; 80053; 83605; 83880; 85025; 87040; 87635; 94760; 99285; A4615; A4624; C9803; G0378; J0696; J1100; J1644; J7030

== ENCOUNTER 2022-03-23 09:27 | Emergency (ER) | payer MEDICARE ==
[~2022-03-23] VITALS: Ht 177.8 cm; Wt 77.3 kg
[~2022-03-23 09:27] MED LIST changes: +ALBU6.7H9 IH; +BENZ-69 PO; +GUAI-727 PO; +LEVO-65 PO; -LOSA25TA96 PO; +LOSA50TA64 PO; +METO-384 PO; +PRED10TA23 PO
[2022-03-23] MEDS ORDERED: normal saline 1000ML IV soln IVB ONE ×2 (10:30→13:45)
[2022-03-23] MEDS ORDERED: iohexol 350MG/ML 100ml bottle IV ONE (11:01)
[2022-03-23 11:44] LABS: BASOPHILS % (AUTO) 0 % (0-1); EOSINOPHILS % (AUTO) 0.1 % (0-6); HEMATOCRIT 37.7 % (42.0-52.0); HEMOGLOBIN 12.4 g/dl (14.0-17.9); LYMPHOCYTES # (AUTO) 0.6 X10'3 (1.1-4.8); LYMPHOCYTES % (AUTO) 7.5 % (21-51); MEAN CORPUSCULAR VOLUME 81.9 FL (78-98); MEAN PLATELET VOLUME 7.9 FL (7.4-10.4); MONOCYTES # (AUTO) 0.7 X10'3 (0-0.9); MONOCYTES % (AUTO) 7.7 % (2-12); NEUTROPHILS # (AUTO) 7.4 X10'3 (1.8-7.7); NEUTROPHILS % (AUTO) 84.7 % (42-75); PLATELET COUNT 220 X10'3 (140-440); RED CELL DISTRIBUTION WIDTH 16.2 % (11.5-14.5); WHITE BLOOD COUNT 8.7 X10'3 (4.5-11.0)
[2022-03-23 11:56] LABS: ALANINE AMINOTRANSFERASE 43 U/L (12-78); ALBUMIN 2.9 G/DL (3.4-5.0); ALBUMIN/GLOBULIN RATIO 0.8 (1.1-1.5); ALKALINE PHOSPHATASE 55 IU/L (46-116); ANION GAP 6 (8-16); ASPARTATE AMINO TRANSFERASE 39 U/L (10-37); BILIRUBIN,TOTAL 0.4 MG/DL (0.1-1.0); BLOOD UREA NITROGEN 27 MG/DL (7-18); BUN/CREATININE RATIO 21.3 (5.4-32.0); CALCIUM 8.3 MG/DL (8.5-10.1); CHLORIDE 104 MMOL/L (99-107); CREATININE 1.27 MG/DL (0.60-1.10); GLUCOSE 88 MG/DL (70-104); POTASSIUM 4.6 MMOL/L (3.5-5.1); SODIUM 136 MMOL/L (135-145); TOTAL CARBON DIOXIDE 25.9 MMOL/L (24-32); TOTAL PROTEIN 6.5 G/DL (6.4-8.2); eGFR 54 ML/MIN
[2022-03-23 12:04] LABS: C-REACTIVE PROTEIN 4.43 MG/DL (0.0-0.5); LIPASE < 50 U/L (73-393); MAGNESIUM 2.3 MG/DL (1.5-2.4); PHOSPHORUS 3.3 MG/DL (2.3-4.5)
[2022-03-23 12:20] LABS: CLARITY,URINE CLEAR (Clear); COLOR,URINE YELLOW (Yellow); GLUCOSE, URINE NEGATIVE (Neg); KETONES,URINE NEGATIVE (Neg); LEUKOCYTE ESTERASE ,URINE NEGATIVE (Neg); NITRITES, URINE NEGATIVE (Neg); OCCULT BLOOD,URINE NEGATIVE (Neg); PH,URINE 6.5 (4.8-8.0); PROTEIN,URINE NEGATIVE (Neg); UROBILINOGEN,URINE 0.2 E.U/dL (0.2-1.0)
[2022-03-23 12:28] LABS: UA COLLECTION TYPE NON-SPECIFIED
[2022-03-23] MEDS ORDERED: acetaminophen 325mg tablet PO ONE (14:45)
[2022-03-23 15:02] VITALS: BP 147/87
== END 2022-03-23 16:17 | disposition home or self-care (01) ==
LOC: ER 09:28
DX: U07.1 COVID-19 (principal); E86.0 Dehydration; I50.9 Heart failure, unspecified; E03.9 Hypothyroidism, unspecified; Z88.1 Allergy status to other antibiotic agents; Z88.8 Allergy status to other drugs, medicaments and biological substances; Z91.041 Radiographic dye allergy status; Z98.890 Other specified postprocedural states
CPT/HCPCS: 36415; 71045; 71275; 80053; 81003; 83605; 83690; 83735; 83880; 84100; 84145; 84484; 85025; 85610; 85651; 86140; 87040; 93005; 96360; 96361; 99285; J3490; J7030; Q9967

== ENCOUNTER 2023-05-03 07:36 | Emergency (ER) | payer MEDICARE ==
[~2023-05-03] VITALS: Ht 177.8 cm; Wt 91.0 kg
[~2023-05-03 07:36] MED LIST changes: +ALBU6.7H14 IH; -ALBU6.7H9 IH; -BENZ-69 PO; -LEVO-65 PO; -PRED10TA23 PO; +[UNRECOGNIZED DRUG - CODE] PO
[2023-05-03 07:40] VITALS: TEMP 98.1
[2023-05-03 09:00] LABS: BASOPHILS # (AUTO) 0.1 X10'3 (0-0.2); BASOPHILS % (AUTO) 0.9 % (0-1); EOSINOPHILS # (AUTO) 0.3 X10'3 (0-0.9); EOSINOPHILS % (AUTO) 2.3 % (0-6); HEMATOCRIT 36.3 % (42.0-52.0); HEMOGLOBIN 11.8 g/dl (14.0-17.9); LYMPHOCYTES # (AUTO) 1.5 X10'3 (1.1-4.8); LYMPHOCYTES % (AUTO) 12.9 % (21-51); MEAN CORPUSCULAR HEMOGLOBIN 27.3 PG (27.0-31.0); MEAN CORPUSCULAR HGB CONC 32.4 g/dL (33.0-36.5); MEAN CORPUSCULAR VOLUME 84.1 FL (78-98); MEAN PLATELET VOLUME 8.3 FL (7.4-10.4); MONOCYTES # (AUTO) 1.3 X10'3 (0-0.9); MONOCYTES % (AUTO) 11.3 % (2-12); NEUTROPHILS # (AUTO) 8.2 X10'3 (1.8-7.7); NEUTROPHILS % (AUTO) 72.6 % (42-75); PLATELET COUNT 174 X10'3 (140-440); RED BLOOD COUNT 4.32 X10'6 (4.70-6.10); RED CELL DISTRIBUTION WIDTH 16.1 % (11.5-14.5); WHITE BLOOD COUNT 11.3 X10'3 (4.5-11.0)
[2023-05-03 09:07] LABS: BILIRUBIN,URINE NEGATIVE (Neg); CLARITY,URINE CLEAR (Clear); COLOR,URINE YELLOW (Yellow); GLUCOSE, URINE NEGATIVE (Neg); KETONES,URINE NEGATIVE (Neg); LEUKOCYTE ESTERASE ,URINE NEGATIVE (Neg); NITRITES, URINE NEGATIVE (Neg); OCCULT BLOOD,URINE NEGATIVE (Neg); PROTEIN,URINE NEGATIVE (Neg); UROBILINOGEN,URINE 0.2 E.U/dL (0.2-1.0)
[2023-05-03 09:08] LABS: UA COLLECTION TYPE NON-SPECIFIED
[2023-05-03 09:14] LABS: ALANINE AMINOTRANSFERASE 22 U/L (12-78); ALBUMIN 3.1 G/DL (3.4-5.0); ALBUMIN/GLOBULIN RATIO 0.9 (1.1-1.5); ALKALINE PHOSPHATASE 67 IU/L (46-116); ANION GAP 5 (8-16); ASPARTATE AMINO TRANSFERASE 17 U/L (10-37); BILIRUBIN,TOTAL 0.6 MG/DL (0.1-1.0); BLOOD UREA NITROGEN 36 MG/DL (7-18); BUN/CREATININE RATIO 24.2 (10.0-20.0); CALCIUM 8.1 MG/DL (8.5-10.1); CHLORIDE 108 MMOL/L (99-107); CREATININE 1.49 MG/DL (0.60-1.10); GLUCOSE 104 MG/DL (70-104); POTASSIUM 5.3 MMOL/L (3.5-5.1); SODIUM 137 MMOL/L (135-145); TOTAL CARBON DIOXIDE 24.2 MMOL/L (24-32); TOTAL PROTEIN 6.5 G/DL (6.4-8.2); eCRCL 37 ML/MIN; eGFR 45 ML/MIN
[2023-05-03 09:21] LABS: PRO BRAIN NATRIURETIC PEPTIDE 490 PG/ML (0-450)
--- NOTE | 2023-05-03 09:31 | NUR ---
Removed from [facility] per Dr. Diallo
[2023-05-03 14:00] VITALS: BP 116/77; PULSE 61; RESP 16; O2SAT 98
== END 2023-05-03 14:02 | disposition home or self-care (01) ==
LOC: ER 07:36
DX: S32.019A Unspecified fracture of first lumbar vertebra, initial encounter for closed fracture (principal); R42 Dizziness and giddiness; R53.1 Weakness; E78.00 Pure hypercholesterolemia, unspecified; E03.9 Hypothyroidism, unspecified; I50.9 Heart failure, unspecified; Z90.49 Acquired absence of other specified parts of digestive tract; Z87.891 Personal history of nicotine dependence; Z95.0 Presence of cardiac pacemaker; Z88.1 Allergy status to other antibiotic agents; Z79.899 Other long term (current) drug therapy; W19.XXXA Unspecified fall, initial encounter; Y93.89 Activity, other specified; Y92.89 Other specified places as the place of occurrence of the external cause; Y99.8 Other external cause status
CPT/HCPCS: 36415; 70450; 71045; 72125; 72131; 80053; 81003; 83880; 84484; 85025; 93005; 99285

== ENCOUNTER 2023-05-11 08:37 | Observation (INO) | payer MEDICARE ==
[~2023-05-11] VITALS: Ht 177.8 cm; Wt 80.9 kg
[2023-05-11] MEDS ORDERED: normal saline 1000ML IV soln IVB ONE ×3 (09:15→11:15)
[2023-05-11 09:53] LABS: BASOPHILS # (AUTO) 0.1 X10'3 (0-0.2); BASOPHILS % (AUTO) 0.8 % (0-1); EOSINOPHILS # (AUTO) 0.3 X10'3 (0-0.9); HEMATOCRIT 39.1 % (42.0-52.0); HEMOGLOBIN 12.7 g/dl (14.0-17.9); LYMPHOCYTES # (AUTO) 1.6 X10'3 (1.1-4.8); LYMPHOCYTES % (AUTO) 16.2 % (21-51); MEAN CORPUSCULAR HEMOGLOBIN 27.2 PG (27.0-31.0); MEAN CORPUSCULAR HGB CONC 32.5 g/dL (33.0-36.5); MEAN CORPUSCULAR VOLUME 83.7 FL (78-98); MEAN PLATELET VOLUME 8.4 FL (7.4-10.4); MONOCYTES # (AUTO) 0.7 X10'3 (0-0.9); NEUTROPHILS # (AUTO) 7.2 X10'3 (1.8-7.7); PLATELET COUNT 282 X10'3 (140-440); RED BLOOD COUNT 4.67 X10'6 (4.70-6.10); RED CELL DISTRIBUTION WIDTH 16.2 % (11.5-14.5); WHITE BLOOD COUNT 9.8 X10'3 (4.5-11.0)
[2023-05-11 10:12] LABS: ALANINE AMINOTRANSFERASE 24 U/L (12-78); ALBUMIN 3.4 G/DL (3.4-5.0); ALBUMIN/GLOBULIN RATIO 0.9 (1.1-1.5); ALKALINE PHOSPHATASE 91 IU/L (46-116); ANION GAP 9 (8-16); ASPARTATE AMINO TRANSFERASE 22 U/L (10-37); BILIRUBIN,TOTAL 0.6 MG/DL (0.1-1.0); BLOOD UREA NITROGEN 47 MG/DL (7-18); CALCIUM 8.9 MG/DL (8.5-10.1); CHLORIDE 107 MMOL/L (99-107); CREATININE 2.24 MG/DL (0.60-1.10); GLUCOSE 117 MG/DL (70-104); POTASSIUM 5.5 MMOL/L (3.5-5.1); PRO BRAIN NATRIURETIC PEPTIDE 641 PG/ML (0-450); SODIUM 136 MMOL/L (135-145); TOTAL CARBON DIOXIDE 19.8 MMOL/L (24-32); eCRCL 25 ML/MIN; eGFR 28 ML/MIN
[2023-05-11] MEDS ORDERED: acetaminophen 325mg tablet PO ONE (11:15)
--- NOTE | 2023-05-11 12:03 | NUR ---
REG DIET ORD AND TRAY REQ FAXED TO DIETARY.
--- NOTE | 2023-05-11 12:03 | NUR ---
PER DR PINEDA RN MAY ORD REG DIET
[2023-05-11] MEDS ORDERED: morphine 2 MG/ML inj. syringe IV PRN (12:25)
[2023-05-11] MEDS ORDERED: magnesium 4gm in 100ml NS 100 ML IV PRN (12:25)
[2023-05-11] MEDS ORDERED: magnesium Cl slow-release 64mg tablet PO PRN (12:25)
[2023-05-11] MEDS ORDERED: HYDROcodone/acetaminophen 5mg/325mg tablet PO PRN (12:25)
[2023-05-11] MEDS ORDERED: ondansetron/PF 4mg/2ml inj IV PRN (12:25)
[2023-05-11] MEDS ORDERED: acetaminophen 325mg tablet PO PRN (12:25)
[2023-05-11] MEDS ORDERED: potassium Cl 40MEQ/1/2NS 520ml 520 ML IV PRN (12:25)
[2023-05-11] MEDS ORDERED: potassium Cl 20 mEq SR tablet PO PRN ×2 (12:25)
[2023-05-11] MEDS ORDERED: magnesium 2GM in 50ml NS 50 ML IV PRN (12:25)
[2023-05-11 13:19] LABS: BILIRUBIN,URINE NEGATIVE (Neg); CLARITY,URINE CLEAR (Clear); COLOR,URINE YELLOW (Yellow); GLUCOSE, URINE NEGATIVE (Neg); KETONES,URINE NEGATIVE (Neg); LEUKOCYTE ESTERASE ,URINE NEGATIVE (Neg); NITRITES, URINE NEGATIVE (Neg); OCCULT BLOOD,URINE NEGATIVE (Neg); PH,URINE 5.5 (4.8-8.0); PROTEIN,URINE NEGATIVE (Neg); UROBILINOGEN,URINE 0.2 E.U/dL (0.2-1.0)
[2023-05-11 13:24] LABS: UA COLLECTION TYPE CLN CATCH MIDSTREAM
[2023-05-11] MEDS: normal saline 1000ml 1,000 ML IV SCH ×3 (14:28→22:36)
--- NOTE | 2023-05-11 14:40 | NUR ---
PT PUT IN HOSPITAL BED.
[2023-05-11] MEDS: acetaminophen 325mg tablet PO SCH (18:23)
--- NOTE | 2023-05-11 19:00 | NUR ---
pt moved from main er to ftE
[2023-05-11] MEDS: heparin, porcine 5000 units/ml vial SQ SCH (20:56)
[2023-05-12 07:43] LABS: BASOPHILS # (AUTO) 0.1 X10'3 (0-0.2); BASOPHILS % (AUTO) 0.8 % (0-1); EOSINOPHILS # (AUTO) 0.3 X10'3 (0-0.9); EOSINOPHILS % (AUTO) 3.4 % (0-6); HEMATOCRIT 36.6 % (42.0-52.0); HEMOGLOBIN 11.9 g/dl (14.0-17.9); LYMPHOCYTES % (AUTO) 24.7 % (21-51); MEAN CORPUSCULAR HEMOGLOBIN 27.4 PG (27.0-31.0); MEAN CORPUSCULAR HGB CONC 32.7 g/dL (33.0-36.5); MEAN CORPUSCULAR VOLUME 83.8 FL (78-98); MEAN PLATELET VOLUME 8.1 FL (7.4-10.4); MONOCYTES # (AUTO) 0.7 X10'3 (0-0.9); MONOCYTES % (AUTO) 8.4 % (2-12); NEUTROPHILS # (AUTO) 5.1 X10'3 (1.8-7.7); NEUTROPHILS % (AUTO) 62.7 % (42-75); PLATELET COUNT 242 X10'3 (140-440); RED BLOOD COUNT 4.36 X10'6 (4.70-6.10); RED CELL DISTRIBUTION WIDTH 16.2 % (11.5-14.5); WHITE BLOOD COUNT 8.2 X10'3 (4.5-11.0)
[2023-05-12 08:05] LABS: ALANINE AMINOTRANSFERASE 18 U/L (12-78); ALBUMIN 3.1 G/DL (3.4-5.0); ALBUMIN/GLOBULIN RATIO 0.9 (1.1-1.5); ALKALINE PHOSPHATASE 82 IU/L (46-116); ANION GAP 7 (8-16); ASPARTATE AMINO TRANSFERASE 21 U/L (10-37); BILIRUBIN,TOTAL 0.4 MG/DL (0.1-1.0); BLOOD UREA NITROGEN 38 MG/DL (7-18); BUN/CREATININE RATIO 23.5 (10.0-20.0); CALCIUM 8.8 MG/DL (8.5-10.1); CHLORIDE 111 MMOL/L (99-107); CREATININE 1.62 MG/DL (0.60-1.10); GLUCOSE 91 MG/DL (70-104); POTASSIUM 5.9 MMOL/L (3.5-5.1); SODIUM 139 MMOL/L (135-145); TOTAL CARBON DIOXIDE 20.9 MMOL/L (24-32); TOTAL PROTEIN 6.5 G/DL (6.4-8.2); eCRCL 34 ML/MIN; eGFR 41 ML/MIN
[2023-05-12 08:08] VITALS: BP 140/50; PULSE 63; RESP 15; TEMP 98.4; O2SAT 97
[2023-05-12 08:10] VITALS: RESP 15; O2SAT 97
--- NOTE | 2023-05-12 08:54 | NUR ---
PAGER ID: [phone] MESSAGE: [id number] Home Med rec is completed. Patient is wanting to take his home meds. Paloma [phone]
[2023-05-12] MEDS ORDERED: aspirin 81mg, enteric-coated 1 TAB TABLET.DR PO SCH (09:00)
[2023-05-12] MEDS ORDERED: guaiFENesin/DM/phenylephrine syrup 120ml bottle PO PRN (09:01)
[2023-05-12] MEDS ORDERED: atorvastatin 10mg tablet PO SCH (09:01)
[2023-05-12] MEDS ORDERED: levoTHYROXINE 125mcg tablet PO SCH (09:03)
[2023-05-12] MEDS ORDERED: metoprolol succinate 25mg (24-HOUR) SR. Tablet PO SCH (09:04)
[2023-05-12] MEDS: heparin, porcine 5000 units/ml vial SQ SCH (09:52)
[2023-05-12 10:28] VITALS: BP 116/39; PULSE 59; RESP 18; TEMP 97.5; O2SAT 100
[2023-05-12] MEDS: acetaminophen 325mg tablet PO SCH ×2 (12:56)
[2023-05-13] MEDS ORDERED: ondansetron/PF 4mg/2ml inj IV PRN (13:55)
[2023-05-13] MEDS ORDERED: potassium Cl 40MEQ/1/2NS 520ml 520 ML IV PRN (13:55)
[2023-05-13] MEDS ORDERED: magnesium 4gm in 100ml NS 100 ML IV PRN (13:55)
[2023-05-13] MEDS ORDERED: magnesium 2GM in 50ml NS 50 ML IV PRN (13:55)
[2023-05-13] MEDS ORDERED: acetaminophen 325mg tablet PO PRN (13:55)
[2023-05-13] MEDS ORDERED: magnesium Cl slow-release 64mg tablet PO PRN (13:55)
[2023-05-13] MEDS ORDERED: potassium Cl 20 mEq SR tablet PO PRN ×2 (13:55)
[2023-05-13] MEDS ORDERED: LISI20TA28 PO (15:22)
[2023-05-13] MEDS ORDERED: SPIR25TA PO (15:22)
[2023-05-13] MEDS ORDERED: ATOR10TA70 PO (15:22)
[2023-05-13] MEDS ORDERED: MULT-1085 PO (15:22)
[2023-05-13] MEDS ORDERED: EMPA10TA PO (15:22)
[2023-05-13] MEDS ORDERED: AMI200T PO (15:30)
[2023-05-13] MEDS ORDERED: K and/or MAG REPLACEMENT MC SCH (20:00)
== END 2023-05-12 14:47 | disposition home or self-care (01) ==
LOC: ER 08:38 → UNDOADMOB 12:26 → ED HOLD 12:26 → EDBEDREQ 05-12 07:11 → ORTHO 4S 05-12 07:49 → UNDODISOB 05-12 14:47
PROVIDERS: ADMIT Internal Medicine; ATTEND Internal Medicine
DX: E87.5 Hyperkalemia (principal); N17.9 Acute kidney failure, unspecified; I50.22 Chronic systolic (congestive) heart failure; N18.30 Chronic kidney disease, stage 3 unspecified; E03.9 Hypothyroidism, unspecified; E78.00 Pure hypercholesterolemia, unspecified; R29.6 Repeated falls; Z79.82 Long term (current) use of aspirin; Z79.899 Other long term (current) drug therapy; Z87.11 Personal history of peptic ulcer disease; Z85.038 Personal history of other malignant neoplasm of large intestine; W19.XXXA Unspecified fall, initial encounter; Y93.89 Activity, other specified; Y92.89 Other specified places as the place of occurrence of the external cause; Y99.8 Other external cause status
CPT/HCPCS: 93306; 96360; 96361; 96372; 97116; 97161; 97530; 99284; G0378; J1644; J7030; 36415; 71045; 73502; 80053; 81003; 83735; 83880; 84132; 84484; 85025; 87081; 93005

== ENCOUNTER 2023-05-13 08:05 | Inpatient (IN) | payer MEDICARE ==
[~2023-05-13] VITALS: Ht 177.8 cm; Wt 81.3 kg
[2023-05-13 09:08] LABS: BASOPHILS # (AUTO) 0.1 X10'3 (0-0.2); BASOPHILS % (AUTO) 0.8 % (0-1); EOSINOPHILS # (AUTO) 0.2 X10'3 (0-0.9); EOSINOPHILS % (AUTO) 2.1 % (0-6); HEMATOCRIT 36.7 % (42.0-52.0); LYMPHOCYTES # (AUTO) 1.7 X10'3 (1.1-4.8); LYMPHOCYTES % (AUTO) 15.3 % (21-51); MEAN CORPUSCULAR HEMOGLOBIN 27.1 PG (27.0-31.0); MEAN CORPUSCULAR HGB CONC 32.6 g/dL (33.0-36.5); MEAN CORPUSCULAR VOLUME 83.1 FL (78-98); MEAN PLATELET VOLUME 8.2 FL (7.4-10.4); MONOCYTES # (AUTO) 0.9 X10'3 (0-0.9); NEUTROPHILS # (AUTO) 8.2 X10'3 (1.8-7.7); NEUTROPHILS % (AUTO) 73.8 % (42-75); PLATELET COUNT 258 X10'3 (140-440); RED BLOOD COUNT 4.42 X10'6 (4.70-6.10); WHITE BLOOD COUNT 11.2 X10'3 (4.5-11.0)
[2023-05-13] MEDS ORDERED: furosemide 40mg/4ml inj IV ONE (09:15)
[2023-05-13 09:30] LABS: ALANINE AMINOTRANSFERASE 23 U/L (12-78); ALBUMIN 3.5 G/DL (3.4-5.0); ALKALINE PHOSPHATASE 88 IU/L (46-116); ANION GAP 9 (8-16); ASPARTATE AMINO TRANSFERASE 23 U/L (10-37); BILIRUBIN,TOTAL 0.6 MG/DL (0.1-1.0); BLOOD UREA NITROGEN 35 MG/DL (7-18); BUN/CREATININE RATIO 23.6 (10.0-20.0); CHLORIDE 100 MMOL/L (99-107); CREATININE 1.48 MG/DL (0.60-1.10); GLUCOSE 84 MG/DL (70-104); POTASSIUM 5.4 MMOL/L (3.5-5.1); SODIUM 131 MMOL/L (135-145); TOTAL CARBON DIOXIDE 22.4 MMOL/L (24-32); TOTAL PROTEIN 6.9 G/DL (6.4-8.2); eCRCL 38 ML/MIN; eGFR 45 ML/MIN
[2023-05-13 09:39] LABS: PRO BRAIN NATRIURETIC PEPTIDE 1538 PG/ML (0-450)
--- NOTE | 2023-05-13 10:31 | NUR ---
PAGED RT FOR ABG.
--- NOTE | 2023-05-13 10:33 | NUR ---
RT AND AUTOMATION ENGINEER AT BEDSIDE.
[2023-05-13 10:55] LABS: ABG BASE EXCESS -4.5 mmol/L (-2.0-2.0); ABG HCO3 17.7 mmol/L (22.0-26.0); ABG OXYGEN SATURATION 98.7 % (94-97); ABG PCO2 (T) 25.1 mmHg (35.0-48.0); ABG PH (T) 7.466 (7.340-7.440); ABG PO2 (T) 114.1 mmHg (75.0-100.0); ALLEN'S TEST POSITIVE; FHHb 1.3 % (0.0-5.0); FMetHb 0.3 % (0.0-1.5); FO2Hb 97.4 % (94-97); PATIENT TEMPERATURE 36.7; TOTAL HEMOGLOBIN 13.1 G/dl (14.0-17.9)
[2023-05-13] MEDS ORDERED: MULT-1085 PO (15:22)
[2023-05-13] MEDS ORDERED: EMPA10TA PO (15:22)
[2023-05-13] MEDS ORDERED: SPIR25TA PO (15:22)
[2023-05-13] MEDS ORDERED: ATOR10TA70 PO (15:22)
[2023-05-13] MEDS ORDERED: LISI20TA28 PO (15:22)
[2023-05-13] MEDS ORDERED: AMI200T PO (15:30)
[2023-05-13] MEDS ORDERED: spironolactone 25 MG tablet PO SCH (16:10)
[2023-05-13] MEDS ORDERED: potassium Cl 40MEQ/1/2NS 520ml 520 ML IV PRN (16:25)
[2023-05-13] MEDS ORDERED: magnesium 4gm in 100ml NS 100 ML IV PRN (16:25)
[2023-05-13] MEDS ORDERED: ondansetron/PF 4mg/2ml inj IV PRN (16:25)
[2023-05-13] MEDS ORDERED: magnesium 2GM in 50ml NS 50 ML IV PRN (16:25)
[2023-05-13] MEDS ORDERED: potassium Cl 20 mEq SR tablet PO PRN ×2 (16:25)
[2023-05-13] MEDS ORDERED: magnesium Cl slow-release 64mg tablet PO PRN (16:25)
[2023-05-13] MEDS ORDERED: acetaminophen 325mg tablet PO PRN (16:25)
--- NOTE | 2023-05-13 16:35 | NUR ---
notified dr martin that pt k+ is 5.4 and pt has order for aldactone (spironolactone).
--- NOTE | 2023-05-13 16:36 | NUR ---
order from dr martin to d/c the spirnolactone .will follow the orders.
[2023-05-13] MEDS: atorvastatin 10mg tablet PO SCH (17:17)
[2023-05-13] MEDS: amiodarone 200mg tablet PO SCH (17:18)
[2023-05-13] MEDS: levoTHYROXINE 125mcg tablet PO SCH (17:18)
[2023-05-13] MEDS: K and/or MAG REPLACEMENT MC SCH (20:00)
--- NOTE | 2023-05-13 20:16 | NUR ---
pt placed onto in patient bed
--- NOTE | 2023-05-13 20:51 | NUR ---
report called to floor nurse. pt tx to room 3026 by tech
[2023-05-13 21:00] VITALS: BP 112/61; RESP 18; TEMP 97.2; O2SAT 98
[2023-05-13] MEDS ORDERED: CHONDROITIN PO SCH (21:00)
[2023-05-13] MEDS ORDERED: lisinopril 20mg tablet PO SCH (21:00)
[2023-05-13] MEDS ORDERED: GLUCOSAMINE PO SCH (21:00)
[2023-05-13] MEDS ORDERED: CHOLECALCIFEROL PO SCH (21:00)
[2023-05-13 22:00] VITALS: BP 117/50; PULSE 63; RESP 19; TEMP 98; O2SAT 99
[2023-05-13] MEDS ORDERED: lisinopril 20mg tablet PO ONE (22:30)
[2023-05-13] MEDS ORDERED: OMEGA-3/DHA/EPA/FISH OIL 1 EACH CAPSULE.DR PO ONE (22:30)
[2023-05-14 02:00] VITALS: BP 103/30; PULSE 60; RESP 19; TEMP 97.8; O2SAT 99
--- NOTE | 2023-05-14 06:08 | NUR ---
Problems reprioritized. Patient report given, questions answered & plan of care reviewed with DEAN JONES.
[2023-05-14 07:03] VITALS: BP 113/32; PULSE 60; RESP 18; TEMP 97; O2SAT 100
[2023-05-14] MEDS: K and/or MAG REPLACEMENT MC SCH (08:00)
[2023-05-14] MEDS ORDERED: metoprolol succinate 25mg (24-HOUR) SR. Tablet PO SCH (08:00)
[2023-05-14] MEDS ORDERED: multivitamins, therapeutics tablet PO SCH (08:00)
[2023-05-14] MEDS ORDERED: aspirin 81mg, enteric-coated 1 TAB TABLET.DR PO SCH (08:00)
[2023-05-14 08:30] VITALS: BP 116/44; PULSE 60
[2023-05-14] MEDS: levoTHYROXINE 125mcg tablet PO SCH (08:34)
[2023-05-14] MEDS: amiodarone 200mg tablet PO SCH (08:34)
[2023-05-14] MEDS: OMEGA-3/DHA/EPA/FISH OIL 1 EACH CAPSULE.DR PO SCH ×3 (08:34→13:00)
[2023-05-14] MEDS: atorvastatin 10mg tablet PO SCH (08:34)
[2023-05-14 09:31] VITALS: O2SAT 96
[2023-05-14 10:07] LABS: BASOPHILS # (AUTO) 0.1 X10'3 (0-0.2); BASOPHILS % (AUTO) 0.6 % (0-1); EOSINOPHILS # (AUTO) 0.4 X10'3 (0-0.9); EOSINOPHILS % (AUTO) 3.6 % (0-6); HEMATOCRIT 38.4 % (42.0-52.0); HEMOGLOBIN 12.6 g/dl (14.0-17.9); LYMPHOCYTES # (AUTO) 1.3 X10'3 (1.1-4.8); LYMPHOCYTES % (AUTO) 13.1 % (21-51); MEAN CORPUSCULAR HEMOGLOBIN 27.4 PG (27.0-31.0); MEAN CORPUSCULAR HGB CONC 32.8 g/dL (33.0-36.5); MEAN CORPUSCULAR VOLUME 83.7 FL (78-98); MEAN PLATELET VOLUME 8.1 FL (7.4-10.4); MONOCYTES # (AUTO) 0.9 X10'3 (0-0.9); NEUTROPHILS # (AUTO) 7.3 X10'3 (1.8-7.7); NEUTROPHILS % (AUTO) 73.7 % (42-75); PLATELET COUNT 235 X10'3 (140-440); RED BLOOD COUNT 4.59 X10'6 (4.70-6.10); RED CELL DISTRIBUTION WIDTH 16.1 % (11.5-14.5); WHITE BLOOD COUNT 9.9 X10'3 (4.5-11.0)
[2023-05-14 10:53] LABS: ALBUMIN 3.4 G/DL (3.4-5.0); ANION GAP 6 (8-16); BLOOD UREA NITROGEN 36 MG/DL (7-18); BUN/CREATININE RATIO 22.5 (10.0-20.0); CALCIUM 9.2 MG/DL (8.5-10.1); CHLORIDE 104 MMOL/L (99-107); GLUCOSE 115 MG/DL (70-104); POTASSIUM 4.9 MMOL/L (3.5-5.1); SODIUM 134 MMOL/L (135-145); THYROID STIMULATING HORMONE 3.57 ulU/ml (0.34-4.50); TOTAL CARBON DIOXIDE 23.9 MMOL/L (24-32); eCRCL 35 ML/MIN; eGFR 41 ML/MIN
[2023-05-14 11:00] VITALS: BP 123/47; PULSE 60; RESP 18; TEMP 97.7; O2SAT 99
[2023-05-14] MEDS ORDERED: ondansetron 4mg rapidly disintigrating tab PO PRN (11:25)
--- NOTE | 2023-05-14 16:29 | NUR ---
Patient was provided discharge education and instructions, IV was DC with cannula intact. Patient belongings, including cane were sent home with patient. Patient to follow up PCP and follow medications as directed. Patient left in a taxi. Addendum: 05/14/23 at 1638 by Shawnee Lauren RN pt dc with [facility] and elisabeth
== END 2023-05-14 16:10 | disposition home or self-care (01) | DRG 291 ==
LOC: ER 08:06 → PCU 3S 16:26 → UNDOADMIN 16:26 → ED HOLD 16:26 → EDBEDREQ 20:24 → ED HOLD 21:03 → PCU 3S 21:03 → UNDODISIN 05-14 16:10
PROVIDERS: ADMIT Internal Medicine; ATTEND Internal Medicine
DX: I11.0 Hypertensive heart disease with heart failure (principal); I50.23 Acute on chronic systolic (congestive) heart failure; N17.9 Acute kidney failure, unspecified; E87.1 Hypo-osmolality and hyponatremia; E03.9 Hypothyroidism, unspecified; E78.00 Pure hypercholesterolemia, unspecified; Z85.038 Personal history of other malignant neoplasm of large intestine; Z87.11 Personal history of peptic ulcer disease; Z87.891 Personal history of nicotine dependence; Z90.49 Acquired absence of other specified parts of digestive tract; Z88.8 Allergy status to other drugs, medicaments and biological substances; Z88.1 Allergy status to other antibiotic agents; Z79.82 Long term (current) use of aspirin; Z79.899 Other long term (current) drug therapy
CPT/HCPCS: 36415; 36600; 71045; 73502; 80048; 80053; 81003; 82803; 83735; 83880; 84132; 84443; 84484; 85018; 85025; 87081; 93005; 99285; A4615; G0378; J1940

== ENCOUNTER 2023-05-15 09:55 | Emergency (ER) | payer MEDICARE ==
[~2023-05-15] VITALS: Ht 177.8 cm; Wt 80.9 kg
[~2023-05-15 09:55] MED LIST changes: -ALBU6.7H14 IH; +AMI200T PO; -ATOR10TA PO; +ATOR10TA70 PO; +EMPA10TA PO; -GABA100C PO; -GUAI-727 PO; +LISI20TA28 PO; -LOSA50TA64 PO; +MULT-1085 PO; +SPIR25TA PO; -[UNRECOGNIZED DRUG - CODE] PO
[2023-05-15 10:48] LABS: BASOPHILS # (AUTO) 0.1 X10'3 (0-0.2); BASOPHILS % (AUTO) 0.5 % (0-1); EOSINOPHILS # (AUTO) 0.2 X10'3 (0-0.9); EOSINOPHILS % (AUTO) 1.9 % (0-6); HEMATOCRIT 40.3 % (42.0-52.0); HEMOGLOBIN 13.2 g/dl (14.0-17.9); LYMPHOCYTES # (AUTO) 1.4 X10'3 (1.1-4.8); LYMPHOCYTES % (AUTO) 12.1 % (21-51); MEAN CORPUSCULAR HEMOGLOBIN 27.2 PG (27.0-31.0); MEAN CORPUSCULAR HGB CONC 32.7 g/dL (33.0-36.5); MEAN CORPUSCULAR VOLUME 83.1 FL (78-98); MEAN PLATELET VOLUME 8.2 FL (7.4-10.4); MONOCYTES % (AUTO) 8.6 % (2-12); NEUTROPHILS # (AUTO) 9.1 X10'3 (1.8-7.7); NEUTROPHILS % (AUTO) 76.9 % (42-75); PLATELET COUNT 279 X10'3 (140-440); RED BLOOD COUNT 4.85 X10'6 (4.70-6.10); RED CELL DISTRIBUTION WIDTH 16.2 % (11.5-14.5); WHITE BLOOD COUNT 11.8 X10'3 (4.5-11.0)
[2023-05-15 11:12] LABS: ALANINE AMINOTRANSFERASE 24 U/L (12-78); ALBUMIN 3.7 G/DL (3.4-5.0); ALKALINE PHOSPHATASE 106 IU/L (46-116); ANION GAP 9 (8-16); ASPARTATE AMINO TRANSFERASE 19 U/L (10-37); BILIRUBIN,TOTAL 0.6 MG/DL (0.1-1.0); BLOOD UREA NITROGEN 50 MG/DL (7-18); BUN/CREATININE RATIO 23.3 (10.0-20.0); CALCIUM 9.4 MG/DL (8.5-10.1); CHLORIDE 102 MMOL/L (99-107); CREATININE 2.15 MG/DL (0.60-1.10); GLUCOSE 85 MG/DL (70-104); POTASSIUM 5.2 MMOL/L (3.5-5.1); SODIUM 133 MMOL/L (135-145); TOTAL CARBON DIOXIDE 21.6 MMOL/L (24-32); TOTAL PROTEIN 7.5 G/DL (6.4-8.2); eCRCL 26 ML/MIN; eGFR 29 ML/MIN
[2023-05-15 11:19] LABS: PRO BRAIN NATRIURETIC PEPTIDE 343 PG/ML (0-450)
[2023-05-15] MEDS ORDERED: normal saline 1000ML IV soln IVB ONE (11:35)
[2023-05-15 15:13] LABS: BILIRUBIN,URINE NEGATIVE (Neg); CLARITY,URINE CLEAR (Clear); COLOR,URINE YELLOW (Yellow); GLUCOSE, URINE NEGATIVE (Neg); KETONES,URINE NEGATIVE (Neg); LEUKOCYTE ESTERASE ,URINE NEGATIVE (Neg); NITRITES, URINE NEGATIVE (Neg); OCCULT BLOOD,URINE NEGATIVE (Neg); PH,URINE 5.5 (4.8-8.0); PROTEIN,URINE NEGATIVE (Neg); UROBILINOGEN,URINE 0.2 E.U/dL (0.2-1.0)
[2023-05-15 15:19] LABS: UA COLLECTION TYPE CLN CATCH MIDSTREAM
[2023-05-15 18:08] VITALS: RESP 18; TEMP 98.6
--- NOTE | 2023-05-15 18:25 | NUR ---
Oral report recieved from DEAN Larry
--- NOTE | 2023-05-15 18:31 | NUR ---
PRECIOUS, CAREGIVER, REQUESTED TO BE NOTIFIED OF UPDATES IN CARE. HER CELL NUMBER IS: [phone]
--- NOTE | 2023-05-15 19:18 | NUR ---
pt is a&o x4, VSS. pt c/o no BM for a 4 days, MD ordered CT. CT done. pt in rooms connected to tele monitor, awaiting CT results.
[2023-05-15 22:28] VITALS: BP 129/52; PULSE 66; O2SAT 98
== END 2023-05-15 22:28 | disposition home or self-care (01) ==
LOC: ER 09:56
DX: R53.1 Weakness (principal); R06.02 Shortness of breath; I50.9 Heart failure, unspecified; E78.00 Pure hypercholesterolemia, unspecified; E03.9 Hypothyroidism, unspecified; Z91.041 Radiographic dye allergy status; Z88.8 Allergy status to other drugs, medicaments and biological substances; Z79.82 Long term (current) use of aspirin; Z79.899 Other long term (current) drug therapy
CPT/HCPCS: 36415; 71045; 74176; 80053; 81003; 83880; 84145; 84484; 85025; 93005; 99285; J7030

== ENCOUNTER 2023-07-12 08:25 | Emergency (ER) | payer MEDICARE ==
[~2023-07-12] VITALS: Ht 177.8 cm; Wt 78.7 kg
[2023-07-12 10:34] VITALS: BP 140/80; PULSE 74; RESP 14; TEMP 97.7; O2SAT 97
== END 2023-07-12 10:37 | disposition home or self-care (01) ==
LOC: ER 08:25
DX: S09.90XA Unspecified injury of head, initial encounter (principal); M25.531 Pain in right wrist; R10.2 Pelvic and perineal pain; M79.641 Pain in right hand; R53.1 Weakness; I50.9 Heart failure, unspecified; E78.00 Pure hypercholesterolemia, unspecified; E03.9 Hypothyroidism, unspecified; Z91.041 Radiographic dye allergy status; Z88.8 Allergy status to other drugs, medicaments and biological substances; Z79.899 Other long term (current) drug therapy; Z79.82 Long term (current) use of aspirin; Z86.12 Personal history of poliomyelitis; W19.XXXA Unspecified fall, initial encounter; Y93.89 Activity, other specified; Y92.89 Other specified places as the place of occurrence of the external cause; Y99.8 Other external cause status
CPT/HCPCS: 70450; 73110; 73130; 73502; 99284

== ENCOUNTER 2024-04-06 13:23 | Emergency (ER) | payer MEDICARE ==
[~2024-04-06] VITALS: Ht 177.8 cm; Wt 75.5 kg
[2024-04-06 13:38] VITALS: BP 113/61; PULSE 60; TEMP 97.8; O2SAT 96
[2024-04-06 15:21] VITALS: RESP 18
== END 2024-04-06 15:22 | disposition home or self-care (01) ==
LOC: ER 13:23
DX: M79.644 Pain in right finger(s) (principal); I50.9 Heart failure, unspecified; E78.00 Pure hypercholesterolemia, unspecified; E03.9 Hypothyroidism, unspecified; Z91.041 Radiographic dye allergy status; Z88.8 Allergy status to other drugs, medicaments and biological substances; Z79.899 Other long term (current) drug therapy; Z79.82 Long term (current) use of aspirin; Z90.49 Acquired absence of other specified parts of digestive tract
CPT/HCPCS: 29130; 73130; 99283

== ENCOUNTER 2024-06-10 10:40 | Emergency (ER) | payer MEDICARE ==
[~2024-06-10] VITALS: Ht 177.8 cm; Wt 78.5 kg
[2024-06-10 10:47] VITALS: BP 109/56; PULSE 66; RESP 20; TEMP 98; O2SAT 98
== END 2024-06-10 12:03 | disposition home or self-care (01) ==
LOC: ER 10:41
DX: M25.571 Pain in right ankle and joints of right foot (principal); I50.9 Heart failure, unspecified; E78.00 Pure hypercholesterolemia, unspecified; E03.9 Hypothyroidism, unspecified; Z95.0 Presence of cardiac pacemaker; Z85.038 Personal history of other malignant neoplasm of large intestine; Z98.890 Other specified postprocedural states; Z60.2 Problems related to living alone; Z88.1 Allergy status to other antibiotic agents; Z88.8 Allergy status to other drugs, medicaments and biological substances; Z79.82 Long term (current) use of aspirin; Z79.899 Other long term (current) drug therapy
CPT/HCPCS: 73610; 99284

== ENCOUNTER 2024-07-11 06:21 | Inpatient (IN) | payer MEDICARE ==
[~2024-07-11] VITALS: Ht 177.8 cm; Wt 69.5 kg
[2024-07-11 07:59] LABS: BASOPHILS # (AUTO) 0.1 X10'3 (0-0.2); BASOPHILS % (AUTO) 1.1 % (0-1); EOSINOPHILS # (AUTO) 0.1 X10'3 (0-0.9); EOSINOPHILS % (AUTO) 0.8 % (0-6); HEMATOCRIT 39.8 % (42.0-52.0); HEMOGLOBIN 13.2 g/dl (14.0-17.9); LYMPHOCYTES # (AUTO) 0.8 X10'3 (1.1-4.8); LYMPHOCYTES % (AUTO) 10.6 % (21-51); MEAN CORPUSCULAR HEMOGLOBIN 27.7 PG (27.0-31.0); MEAN CORPUSCULAR HGB CONC 33.2 g/dL (33.0-36.5); MEAN CORPUSCULAR VOLUME 83.4 FL (78-98); MEAN PLATELET VOLUME 8.3 FL (7.4-10.4); MONOCYTES # (AUTO) 1.3 X10'3 (0-0.9); MONOCYTES % (AUTO) 16.6 % (2-12); NEUTROPHILS # (AUTO) 5.6 X10'3 (1.8-7.7); NEUTROPHILS % (AUTO) 70.9 % (42-75); PLATELET COUNT 160 X10'3 (140-440); RED BLOOD COUNT 4.77 X10'6 (4.70-6.10); RED CELL DISTRIBUTION WIDTH 15.9 % (11.5-14.5); WHITE BLOOD COUNT 7.9 X10'3 (4.5-11.0)
[2024-07-11 08:23] LABS: ALANINE AMINOTRANSFERASE 86 U/L (12-78); ALBUMIN 3.1 G/DL (3.4-5.0); ALBUMIN/GLOBULIN RATIO 0.9 (1.1-1.5); ALKALINE PHOSPHATASE 80 IU/L (46-116); ANION GAP 6 (8-16); ASPARTATE AMINO TRANSFERASE 61 U/L (10-37); BILIRUBIN,TOTAL 0.7 MG/DL (0.1-1.0); BLOOD UREA NITROGEN 21 MG/DL (7-18); BUN/CREATININE RATIO 14.1 (10.0-20.0); CHLORIDE 107 MMOL/L (99-107); CREATININE 1.49 MG/DL (0.60-1.10); GLUCOSE 108 MG/DL (70-104); POTASSIUM 4.8 MMOL/L (3.5-5.1); SODIUM 141 MMOL/L (135-145); TOTAL CARBON DIOXIDE 28.1 MMOL/L (24-32); TOTAL PROTEIN 6.7 G/DL (6.4-8.2); eCRCL 32 ML/MIN; eGFR 45 ML/MIN
[2024-07-11 08:31] LABS: PRO BRAIN NATRIURETIC PEPTIDE 1927 PG/ML (0-450)
[2024-07-11] MEDS ORDERED: magnesium sulf-water 2g/50mL 50 ML IV PRN (10:40)
[2024-07-11] MEDS ORDERED: magnesium hydroxide 30ml (MOM) UD suspension PO PRN (10:40)
[2024-07-11] MEDS ORDERED: ondansetron/PF 4mg/2ml inj IV PRN (10:40)
[2024-07-11] MEDS ORDERED: morphine 2 MG/ML inj. syringe IV PRN (10:40)
[2024-07-11] MEDS ORDERED: magnesium sulf-water 4G/100mL 100 ML IV PRN (10:40)
[2024-07-11] MEDS ORDERED: mag hydrox/Alum hydrox/simeth 30ml oral suspension PO PRN (10:40)
[2024-07-11] MEDS ORDERED: HYDROcodone/acetaminophen 10/325mg tab PO PRN (10:40)
[2024-07-11] MEDS ORDERED: potassium Cl 40MEQ/1/2NS 520ml 520 ML IV PRN (10:40)
[2024-07-11] MEDS ORDERED: potassium Cl 20 mEq SR tablet PO PRN ×2 (10:40)
[2024-07-11] MEDS ORDERED: diphenhydrAMINE 25mg capsule PO PRN (10:40)
[2024-07-11] MEDS ORDERED: magnesium Cl slow-release 64mg tablet PO PRN (10:40)
[2024-07-11] MEDS ORDERED: hydrALAZINE 20mg/ml inj. IV PRN (10:40)
[2024-07-11] MEDS: CefTRIAXone/D5W-Rocephin 1gm 50 ML IV ONE (10:52)
[2024-07-11] MEDS: furosemide 10 MG/1 ML 10ml inj IV ONE ×2 (11:07→14:39)
[2024-07-11] MEDS: azithromycin 250mg tablet PO ONE (11:09)
[2024-07-11] MEDS: albuterol 2.5 MG/3 ML nebule NEB ONE (11:25)
[2024-07-11 11:26] VITALS: PULSE 60; PULSE 85; RESP 21; RESP 24; O2SAT 94
[2024-07-11] MEDS ORDERED: ipratropium/albuterol 3ml nebule NEB PRN (14:20)
[2024-07-11] MEDS: HYDROcodone/acetaminophen 5mg/325mg tablet PO PRN (14:47)
[2024-07-11 15:20] LABS: CREATININE 1.54 MG/DL (0.60-1.10); POTASSIUM 4.7 MMOL/L (3.5-5.1); THYROID STIMULATING HORMONE 0.62 ulU/ml (0.34-4.50); eCRCL 31 ML/MIN; eGFR 43 ML/MIN
[2024-07-11 17:09] VITALS: PULSE 65; RESP 16; O2SAT 92
[2024-07-11 17:11] VITALS: PULSE 70; RESP 20
[2024-07-11] MEDS: K and/or MAG REPLACEMENT MC SCH (20:37)
[2024-07-11] MEDS ORDERED: UNABLE TO OBTAIN (20:41)
[2024-07-11 21:05] LABS: BILIRUBIN,URINE NEGATIVE (Neg); CLARITY,URINE CLEAR (Clear); COLOR,URINE YELLOW (Yellow); GLUCOSE, URINE NEGATIVE (Neg); KETONES,URINE NEGATIVE (Neg); LEUKOCYTE ESTERASE ,URINE NEGATIVE (Neg); NITRITES, URINE NEGATIVE (Neg); OCCULT BLOOD,URINE SMALL (Neg); PH,URINE 5.5 (4.8-8.0); PROTEIN,URINE NEGATIVE (Neg); UROBILINOGEN,URINE 0.2 E.U/dL (0.2-1.0)
[2024-07-11 21:16] LABS: UA COLLECTION TYPE NON-SPECIFIED
[2024-07-11 21:17] LABS: BACTERIA,URINE FEW /HPF (Neg); MUCUS STRANDS NONE SEEN /LPF (Neg); RBC,URINE 0-2 /HPF (0-2); SQUAMOUS EPITHELIAL CELL,UR NONE SEEN /LPF (FEW); WBC,URINE NONE SEEN /HPF (0-4)
[2024-07-11 21:24] VITALS: PULSE 68; RESP 18; O2SAT 96
[2024-07-11] MEDS: gabapentin 300mg capsule PO SCH (21:28)
[2024-07-11] MEDS: docusate sod 100mg capsule PO SCH (21:28)
[2024-07-11] MEDS: acetaminophen 325mg tablet PO PRN (21:39)
[2024-07-11 23:20] VITALS: BP 170/73; PULSE 70; RESP 18; TEMP 99.1; O2SAT 92
[2024-07-11 23:34] VITALS: BP 143/55
[2024-07-12 06:00] VITALS: BP 140/54; PULSE 62; RESP 20; TEMP 97.5; O2SAT 93
[2024-07-12] MEDS: lisinopril 20mg tablet PO SCH (07:23)
[2024-07-12] MEDS: EMPAGLIFLOZIN 10 MG TABLET PO SCH (07:23)
[2024-07-12] MEDS: spironolactone 25 MG tablet PO SCH (07:23)
[2024-07-12] MEDS: metoprolol succinate 25mg (24-HOUR) SR. Tablet PO SCH (07:24)
[2024-07-12] MEDS: levoTHYROXINE 125mcg tablet PO SCH (07:24)
[2024-07-12] MEDS: aspirin 81mg, enteric-coated 1 TAB TABLET.DR PO SCH (07:24)
[2024-07-12] MEDS: atorvastatin 10mg tablet PO SCH (07:25)
[2024-07-12] MEDS: CefTRIAXone/D5W-Rocephin 1gm 50 ML IV SCH (07:29)
[2024-07-12] MEDS: furosemide 10 MG/1 ML 10ml inj IV SCH (07:33)
[2024-07-12] MEDS: enoxaparin 40mg/0.4ml syringe SUBCUT SCH (07:35)
[2024-07-12 07:37] LABS: BASOPHILS # (AUTO) 0.1 X10'3 (0-0.2); BASOPHILS % (AUTO) 0.6 % (0-1); EOSINOPHILS % (AUTO) 0 % (0-6); HEMATOCRIT 44.8 % (42.0-52.0); HEMOGLOBIN 14.5 g/dl (14.0-17.9); LYMPHOCYTES # (AUTO) 1.4 X10'3 (1.1-4.8); LYMPHOCYTES % (AUTO) 13.3 % (21-51); MEAN CORPUSCULAR HEMOGLOBIN 27.1 PG (27.0-31.0); MEAN CORPUSCULAR HGB CONC 32.3 g/dL (33.0-36.5); MEAN CORPUSCULAR VOLUME 83.9 FL (78-98); MEAN PLATELET VOLUME 8.9 FL (7.4-10.4); MONOCYTES # (AUTO) 1.4 X10'3 (0-0.9); MONOCYTES % (AUTO) 13.5 % (2-12); NEUTROPHILS # (AUTO) 7.7 X10'3 (1.8-7.7); NEUTROPHILS % (AUTO) 72.6 % (42-75); PLATELET COUNT 177 X10'3 (140-440); RED BLOOD COUNT 5.34 X10'6 (4.70-6.10); RED CELL DISTRIBUTION WIDTH 16.1 % (11.5-14.5); WHITE BLOOD COUNT 10.6 X10'3 (4.5-11.0)
[2024-07-12 08:00] LABS: ALANINE AMINOTRANSFERASE 132 U/L (12-78); ALBUMIN 3.3 G/DL (3.4-5.0); ALBUMIN/GLOBULIN RATIO 0.8 (1.1-1.5); ALKALINE PHOSPHATASE 84 IU/L (46-116); ANION GAP 9 (8-16); ASPARTATE AMINO TRANSFERASE 116 U/L (10-37); BLOOD UREA NITROGEN 34 MG/DL (7-18); BUN/CREATININE RATIO 19.8 (10.0-20.0); CALCIUM 8.5 MG/DL (8.5-10.1); CHLORIDE 101 MMOL/L (99-107); CREATININE 1.72 MG/DL (0.60-1.10); GLUCOSE 131 MG/DL (70-104); MAGNESIUM 2.3 MG/DL (1.5-2.4); POTASSIUM 4.8 MMOL/L (3.5-5.1); PRO BRAIN NATRIURETIC PEPTIDE 1411 PG/ML (0-450); SODIUM 140 MMOL/L (135-145); TOTAL PROTEIN 7.6 G/DL (6.4-8.2); eCRCL 28 ML/MIN; eGFR 38 ML/MIN
[2024-07-12] MEDS: azithromycin/NS 500mg/250ml 250 ML IV SCH (08:10)
[2024-07-12 10:00] VITALS: BP 101/59; PULSE 70; RESP 20; TEMP 98.1; O2SAT 91
[2024-07-12 18:00] VITALS: BP 135/45; PULSE 67; RESP 18; TEMP 98; O2SAT 92
[2024-07-12 19:50] VITALS: RESP 16; O2SAT 92
[2024-07-12] MEDS: acetaminophen 325mg tablet PO PRN (20:00)
[2024-07-12 20:41] VITALS: PULSE 68; RESP 18; O2SAT 96
[2024-07-12 22:00] VITALS: BP 118/37; PULSE 65; RESP 14; TEMP 98.3; O2SAT 93
[2024-07-13] MEDS: guaiFENesin/DM 10ml UD oral syrup PO PRN (02:02)
[2024-07-13 06:00] VITALS: BP 157/66; PULSE 67; RESP 16; TEMP 98.3; O2SAT 98
[2024-07-13 06:57] LABS: BASOPHILS % (AUTO) 0.5 % (0-1); EOSINOPHILS % (AUTO) 0.2 % (0-6); HEMATOCRIT 41.6 % (42.0-52.0); HEMOGLOBIN 13.7 g/dl (14.0-17.9); LYMPHOCYTES # (AUTO) 1.4 X10'3 (1.1-4.8); LYMPHOCYTES % (AUTO) 13.8 % (21-51); MEAN CORPUSCULAR HEMOGLOBIN 27.5 PG (27.0-31.0); MEAN CORPUSCULAR HGB CONC 32.9 g/dL (33.0-36.5); MEAN CORPUSCULAR VOLUME 83.6 FL (78-98); MEAN PLATELET VOLUME 8.8 FL (7.4-10.4); MONOCYTES # (AUTO) 1.2 X10'3 (0-0.9); MONOCYTES % (AUTO) 11.7 % (2-12); NEUTROPHILS # (AUTO) 7.4 X10'3 (1.8-7.7); NEUTROPHILS % (AUTO) 73.8 % (42-75); PLATELET COUNT 158 X10'3 (140-440); RED BLOOD COUNT 4.98 X10'6 (4.70-6.10); RED CELL DISTRIBUTION WIDTH 15.6 % (11.5-14.5)
[2024-07-13 07:20] LABS: ALANINE AMINOTRANSFERASE 157 U/L (12-78); ALBUMIN 2.8 G/DL (3.4-5.0); ALBUMIN/GLOBULIN RATIO 0.7 (1.1-1.5); ALKALINE PHOSPHATASE 73 IU/L (46-116); ANION GAP 9 (8-16); ASPARTATE AMINO TRANSFERASE 174 U/L (10-37); BLOOD UREA NITROGEN 45 MG/DL (7-18); BUN/CREATININE RATIO 27.4 (10.0-20.0); CALCIUM 8.3 MG/DL (8.5-10.1); CHLORIDE 103 MMOL/L (99-107); CREATININE 1.64 MG/DL (0.60-1.10); GLUCOSE 101 MG/DL (70-104); MAGNESIUM 2.3 MG/DL (1.5-2.4); POTASSIUM 4.4 MMOL/L (3.5-5.1); PRO BRAIN NATRIURETIC PEPTIDE 578 PG/ML (0-450); SODIUM 141 MMOL/L (135-145); TOTAL CARBON DIOXIDE 29.4 MMOL/L (24-32); TOTAL PROTEIN 6.8 G/DL (6.4-8.2); eCRCL 29 ML/MIN; eGFR 40 ML/MIN
[2024-07-13] MEDS: gabapentin 300mg capsule PO SCH (07:39)
[2024-07-13] MEDS: furosemide 40mg/4ml inj IV SCH (07:43)
[2024-07-13] MEDS: enoxaparin 30mg/0.3ml syringe SUBCUT SCH (07:51)
[2024-07-13 10:00] VITALS: BP 97/47; PULSE 62; RESP 24; TEMP 97.8; O2SAT 90
[2024-07-13 15:46] VITALS: PULSE 65; RESP 21; O2SAT 92
[2024-07-13 18:00] VITALS: BP 115/46; PULSE 63; RESP 16; TEMP 98.1; O2SAT 94
[2024-07-13 21:20] VITALS: PULSE 60; RESP 21; O2SAT 97
[2024-07-13 22:00] VITALS: BP 117/47; PULSE 60; RESP 14; TEMP 97.6; O2SAT 96
[2024-07-14 06:00] VITALS: BP 131/48; PULSE 60; RESP 14; TEMP 97.8; O2SAT 97
[2024-07-14 06:22] LABS: BASOPHILS % (AUTO) 0.4 % (0-1); EOSINOPHILS # (AUTO) 0.1 X10'3 (0-0.9); EOSINOPHILS % (AUTO) 0.9 % (0-6); HEMATOCRIT 39.9 % (42.0-52.0); HEMOGLOBIN 13.1 g/dl (14.0-17.9); LYMPHOCYTES # (AUTO) 1.3 X10'3 (1.1-4.8); LYMPHOCYTES % (AUTO) 16.2 % (21-51); MEAN CORPUSCULAR HEMOGLOBIN 27.3 PG (27.0-31.0); MEAN CORPUSCULAR HGB CONC 32.9 g/dL (33.0-36.5); MEAN CORPUSCULAR VOLUME 82.9 FL (78-98); MEAN PLATELET VOLUME 8.9 FL (7.4-10.4); MONOCYTES # (AUTO) 1.1 X10'3 (0-0.9); MONOCYTES % (AUTO) 13.2 % (2-12); NEUTROPHILS # (AUTO) 5.7 X10'3 (1.8-7.7); NEUTROPHILS % (AUTO) 69.3 % (42-75); PLATELET COUNT 165 X10'3 (140-440); RED BLOOD COUNT 4.81 X10'6 (4.70-6.10); RED CELL DISTRIBUTION WIDTH 15.6 % (11.5-14.5); WHITE BLOOD COUNT 8.3 X10'3 (4.5-11.0)
[2024-07-14 06:56] LABS: ALANINE AMINOTRANSFERASE 133 U/L (12-78); ALBUMIN 2.6 G/DL (3.4-5.0); ALBUMIN/GLOBULIN RATIO 0.7 (1.1-1.5); ALKALINE PHOSPHATASE 72 IU/L (46-116); ANION GAP 11 (8-16); ASPARTATE AMINO TRANSFERASE 127 U/L (10-37); BILIRUBIN,TOTAL 0.7 MG/DL (0.1-1.0); BLOOD UREA NITROGEN 43 MG/DL (7-18); BUN/CREATININE RATIO 33.3 (10.0-20.0); CALCIUM 8.7 MG/DL (8.5-10.1); CHLORIDE 104 MMOL/L (99-107); CREATININE 1.29 MG/DL (0.60-1.10); GLUCOSE 98 MG/DL (70-104); MAGNESIUM 2.6 MG/DL (1.5-2.4); POTASSIUM 4.3 MMOL/L (3.5-5.1); PRO BRAIN NATRIURETIC PEPTIDE 599 PG/ML (0-450); SODIUM 142 MMOL/L (135-145); TOTAL CARBON DIOXIDE 27.5 MMOL/L (24-32); TOTAL PROTEIN 6.6 G/DL (6.4-8.2); eCRCL 40 ML/MIN; eGFR 53 ML/MIN
[2024-07-14 10:00] VITALS: BP 105/45; PULSE 61; RESP 16; TEMP 96.8; O2SAT 93
[2024-07-14 14:00] VITALS: RESP 16; O2SAT 93
== END 2024-07-14 15:50 | DRG 291 ==
LOC: ER 06:22 → ED HOLD 10:43 → ORTHO 4S 22:55
PROVIDERS: ADMIT Internal Medicine; ATTEND Internal Medicine
DX: I13.0 Hypertensive heart and chronic kidney disease with heart failure and stage 1 through stage 4 chronic kidney disease, or unspecified chronic kidney disease (principal); I50.23 Acute on chronic systolic (congestive) heart failure; J18.9 Pneumonia, unspecified organism; J96.00 Acute respiratory failure, unspecified whether with hypoxia or hypercapnia; N17.9 Acute kidney failure, unspecified; G62.9 Polyneuropathy, unspecified; N18.9 Chronic kidney disease, unspecified; E78.00 Pure hypercholesterolemia, unspecified; Z20.822 Contact with and (suspected) exposure to COVID-19; K46.9 Unspecified abdominal hernia without obstruction or gangrene; R29.6 Repeated falls; E03.9 Hypothyroidism, unspecified; Z85.038 Personal history of other malignant neoplasm of large intestine; Z87.11 Personal history of peptic ulcer disease; Z88.1 Allergy status to other antibiotic agents; Z88.8 Allergy status to other drugs, medicaments and biological substances; Z79.82 Long term (current) use of aspirin; Z79.899 Other long term (current) drug therapy
CPT/HCPCS: 36415; 71045; 80053; 81001; 82565; 83605; 83735; 83880; 84132; 84443; 84484; 85025; 87040; 87081; 87811; 93005; 94640; 94760; 97161; 97530; 97535; 99285; A4615; A6213; A6590; C1758; G0378; J0456; J0696; J1650; J1940